=== PATIENT | female | born 1960 | race Caucasian/White ===

== ENCOUNTER → 2016-11-12 | Outpatient (CLI) | payer BC ==
[2016-11-12 08:49] LABS: MEAN CORPUSCULAR HEMOGLOBIN 31.1 pg (27.0-33.0); MEAN CORPUSCULAR HGB CONC 33.1 g/dl (32.0-36.5); MEAN CORPUSCULAR VOLUME 93.9 fl (80.0-96.0); WHITE BLOOD COUNT 5.7 K/mm3 (4.0-10.0)
[2016-11-12 09:19] LABS: ALBUMIN 4.1 GM/DL (3.2-5.2); ALBUMIN/GLOBULIN RATIO 1.41 (1.00-1.93); ALKALINE PHOSPHATASE 109 U/L (45-117); ALT/SGPT 57 U/L (12-78); ANION GAP 6 MEQ/L (8-16); AST/SGOT 24 U/L (15-37); BILIRUBIN,TOTAL 0.4 MG/DL (0.2-1.0); BLOOD UREA NITROGEN 16 MG/DL (7-18); CALCIUM LEVEL 9.2 MG/DL (8.5-10.1); CARBON DIOXIDE LEVEL 31 MEQ/L (21-32); CHLORIDE LEVEL 106 MEQ/L (98-107); CHOLESTEROL LEVEL 243 MG/DL (<200); CREATININE FOR GFR 0.73 MG/DL (0.55-1.02); GLOMERULAR FILTRATION RATE > 60.0 (>51); GLUCOSE, FASTING 103 MG/DL (70-105); POTASSIUM SERUM 4.5 MEQ/L (3.5-5.1); SODIUM LEVEL 143 MEQ/L (136-145); TRIGLYCERIDES LEVEL 137 MG/DL (<150)
== END ==
LOC: M LAB 08:07
PROVIDERS: ATTEND Nurse Practitioner Adult Health
DX: Z00.00 Encounter for general adult medical examination without abnormal findings (principal); R73.09 Other abnormal glucose; J45.20 Mild intermittent asthma, uncomplicated; K76.0 Fatty (change of) liver, not elsewhere classified; I49.9 Cardiac arrhythmia, unspecified; Z83.49 Family history of other endocrine, nutritional and metabolic diseases

== ENCOUNTER → 2017-02-27 | Outpatient (CLI) | payer BC ==
--- NOTE | 2017-02-28 10:16 | REP ---
CT NECK WITHOUT CONTRAST: HISTORY: Left neck fullness. Calcifications are present in the tonsils. This is secondary to previous inflammatory disease. There is minimal enlargement of the left tonsil. There is extension into the left lateral aspect of the soft palate. There is inferior extension into the left lateral wall of the oropharynx. There is minimal mass effect on the upper oropharynx. The hypopharynx, larynx and subglottic trachea are normal in appearance. The salivary glands are normal. The thyroid gland is heterogeneous in density. A 6 mm calcification is present in the left thyroid lobe. Small lymph nodes less than 1 cm in size are present in the internal jugular chains, posterior triangles, submandibular and submental areas. Minimal degenerative change is present in the cervical spine. The lung apices are clear. The visualized sinuses are clear. IMPRESSION: There is enlargement of the left tonsil with extension into the soft palate and the left lateral wall of the oropharynx with minimal mass effect on the upper oropharynx. This is suspicious for a neoplasm. Signed by Chavez Sen MD 02/28/2017 10:19 A
== END ==
LOC: M RAD 17:01
PROVIDERS: ATTEND Nurse Practitioner Adult Health
DX: R22.1 Localized swelling, mass and lump, neck (principal)

== ENCOUNTER → 2017-07-16 | Outpatient (REF) | payer BC ==
[2017-07-16 17:36] LABS: ALBUMIN 4.1 GM/DL (3.2-5.2); ALBUMIN/GLOBULIN RATIO 1.32 (1.00-1.93); ALKALINE PHOSPHATASE 99 U/L (45-117); ALT/SGPT 131 U/L (12-78); ANION GAP 8 MEQ/L (8-16); AST/SGOT 57 U/L (15-37); BILIRUBIN,TOTAL 0.3 MG/DL (0.2-1.0); BLOOD UREA NITROGEN 15 MG/DL (7-18); CALCIUM LEVEL 9.3 MG/DL (8.5-10.1); CARBON DIOXIDE LEVEL 28 MEQ/L (21-32); CHLORIDE LEVEL 104 MEQ/L (98-107); GLOMERULAR FILTRATION RATE > 60.0 (>51); GLUCOSE, FASTING 87 MG/DL (70-105); SODIUM LEVEL 140 MEQ/L (136-145); TOTAL PROTEIN 7.2 GM/DL (6.4-8.2)
== END ==
LOC: M SFHCPLAZ 15:47
PROVIDERS: ATTEND Nurse Practitioner Adult Health
DX: K76.0 Fatty (change of) liver, not elsewhere classified (principal); E04.1 Nontoxic single thyroid nodule; R73.9 Hyperglycemia, unspecified

== ENCOUNTER → 2017-09-09 | Outpatient (CLI) | payer BC ==
[~2017-09-09] MED LIST: DULE200A INH; FLAXPOW PO; METF500T4 PO; OMEP20CA3 PO
[2017-09-09 11:26] LABS: FERRITIN 166 NG/ML (8-252); PERCENT SATURATION 23.3 % (13.2-45.0); TOTAL IRON BINDING CAPACITY 331 UG/DL (250-450)
[2017-09-12 00:07] LABS: ALPHA 1 ANTITRYPSIN 94 mg/dL (90-200); SJOGREN'S ANTI SS-A <0.2 AI (0.0-0.9); SJOGREN'S ANTI SS-B <0.2 AI (0.0-0.9)
== END ==
LOC: M LAB 09:19
PROVIDERS: ATTEND Internal Medicine Gastroenterology
DX: R94.5 Abnormal results of liver function studies (principal)

== ENCOUNTER → 2017-09-25 | Day surgery (SDC) | payer BC ==
[~2017-09-25] VITALS: Ht 170.2 cm; Wt 96.6 kg
[~2017-09-25] MED LIST changes: +LIDOCAINE 2% INJ 100 MG/5 ML SDV (FOR ANES.) As Ordered ONE; +NS 1,000 ML IV ONE; +PROPOFOL 500 MG/50 ML VIAL As Ordered ONE
--- NOTE | 2017-09-25 11:37 | ROOR ---
Patient Name: Meryl Manzano Procedure Date: 09/25/2017 10:44 AM Date of : 1960 Age: 57 Room: [facility] Gender: Female Note Status: Finalized Procedure: Upper GI endoscopy Indications: Suspected esophageal reflux Providers: Abdullahi Sevilla MD Referring MD: Edvin Pickens MD Requesting Provider: Medicines: Monitored Anesthesia Care Complications: No immediate complications. Procedure: Pre-Anesthesia Assessment: - Prior to the procedure, a History and Physical was performed, and patient medications and allergies were reviewed. The patient is competent. The risks and benefits of the procedure and the sedation options and risks were discussed with the patient. All questions were answered and informed consent was obtained. Patient identification and proposed procedure were verified by the physician, the nurse and the anesthesiologist in the procedure room. Mental Status Examination: normal. Airway Examination: normal oropharyngeal airway and neck mobility. Respiratory Examination: clear to auscultation. CV Examination: normal. Prophylactic Antibiotics: The patient does not require prophylactic antibiotics. Prior Anticoagulants: The patient has taken no previous anticoagulant or antiplatelet agents. ASA Grade Assessment: II - A patient with mild systemic disease. After reviewing the risks and benefits, the patient was deemed in satisfactory condition to undergo the procedure. The anesthesia plan was to use monitored anesthesia care (MAC). Immediately prior to administration of medications, the patient was re-assessed for adequacy to receive sedatives. The heart rate, respiratory rate, oxygen saturations, blood pressure, adequacy of pulmonary ventilation, and response to care were monitored throughout the procedure. The physical status of the patient was re-assessed after the procedure. The Endoscope was introduced through the mouth, and advanced to the second part of duodenum. The upper GI endoscopy was accomplished without difficulty. The patient tolerated the procedure well. Findings: The examined esophagus was normal. The Z-line was regular and was found 40 cm from the incisors. Diffuse moderate inflammation characterized by erythema and granularity was found in the gastric body and in the gastric antrum. Biopsies were taken with a cold forceps for Helicobacter pylori testing using CLOtest. Verification of patient identification for the specimen was done by the physician and nurse using the patient's name, date and medical record number. Estimated blood loss was minimal. The duodenal bulb and second portion of the duodenum were normal. Impression: - Normal esophagus. - Z-line regular, 40 cm from the incisors. - Gastritis. Biopsied. - Normal duodenal bulb and second portion of the duodenum. Recommendation: - Patient has a contact number available for emergencies. The signs and symptoms of potential delayed complications were discussed with the patient. Return to normal activities tomorrow. Written discharge instructions were provided to the patient. - Resume previous diet. - Continue present medications. - Follow an antireflux regimen. - Await pathology results. - Return to GI clinic 1 - 2 weeks. Please call GI clinic @ [phone] for apppointment date and time. - Return to primary care physician. Abdullahi Sevilla MD Abdullahi Sevilla MD 09/25/2017 11:36:50 AM This report has been signed electronically. Number of Addenda: 0 Note Initiated On: 09/25/2017 10:44 AM Estimated Blood Loss: Estimated blood loss was minimal.
--- NOTE | 2017-09-25 11:51 | ROOR ---
Patient Name: Meryl Manzano Procedure Date: 09/25/2017 10:45 AM Date of : 1960 Age: 57 Room: [facility] Gender: Female Note Status: Finalized Procedure: Colonoscopy Indications: Screening for colorectal malignant neoplasm Providers: Abdullahi Sevilla MD Referring MD: Edvin Pickens MD Requesting Provider: Medicines: Monitored Anesthesia Care Complications: No immediate complications. Procedure: Pre-Anesthesia Assessment: - Prior to the procedure, a History and Physical was performed, and patient medications and allergies were reviewed. The patient is competent. The risks and benefits of the procedure and the sedation options and risks were discussed with the patient. All questions were answered and informed consent was obtained. Patient identification and proposed procedure were verified by the physician, the nurse and the anesthesiologist in the procedure room. Mental Status Examination: alert and oriented. Airway Examination: normal oropharyngeal airway and neck mobility. Respiratory Examination: clear to auscultation. CV Examination: normal. Prophylactic Antibiotics: The patient does not require prophylactic antibiotics. Prior Anticoagulants: The patient has taken no previous anticoagulant or antiplatelet agents. ASA Grade Assessment: II - A patient with mild systemic disease. After reviewing the risks and benefits, the patient was deemed in satisfactory condition to undergo the procedure. The anesthesia plan was to use monitored anesthesia care (MAC). Immediately prior to administration of medications, the patient was re-assessed for adequacy to receive sedatives. The heart rate, respiratory rate, oxygen saturations, blood pressure, adequacy of pulmonary ventilation, and response to care were monitored throughout the procedure. The physical status of the patient was re-assessed after the procedure. The Colonoscope was introduced through the anus and advanced to the terminal ileum, with identification of the appendiceal orifice and IC valve. The colonoscopy was performed without difficulty. The patient tolerated the procedure well. Findings: The perianal and digital rectal examinations were normal. The terminal ileum appeared normal. A 5 mm polyp was found in the ascending colon. The polyp was sessile. The polyp was removed with a hot snare. Resection and retrieval were complete. Verification of patient identification for the specimen was done by the physician and nurse using the patient's name, date and medical record number. Estimated blood loss was minimal. A 15 mm polyp was found in the transverse colon. The polyp was flat and multi-lobulated. The polyp was removed with a hot snare. Resection and retrieval were complete. To close a defect after polypectomy, one hemostatic clip was successfully placed. There was no bleeding at the end of the procedure. Multiple small-mouthed diverticula were found in the sigmoid colon. There was no evidence of diverticular bleeding. Non-bleeding external and internal hemorrhoids were found during retroflexion. The hemorrhoids were small. Impression: - The examined portion of the ileum was normal. - One 5 mm polyp in the ascending colon, removed with a hot snare. Resected and retrieved. - One 15 mm polyp in the transverse colon, removed with a hot snare. Resected and retrieved. Clip was placed. - Moderate diverticulosis in the sigmoid colon. There was no evidence of diverticular bleeding. - Non-bleeding external and internal hemorrhoids. Recommendation: - Patient has a contact number available for emergencies. The signs and symptoms of potential delayed complications were discussed with the patient. Return to normal activities tomorrow. Written discharge instructions were provided to the patient. - Resume previous diet. - Continue present medications. - Await pathology results. - Repeat colonoscopy in 3 years for surveillance based on pathology results. - Return to GI clinic 1 - 2 weeks. Please call GI clinic @ [phone] for apppointment date and time. - Return to primary care physician. Abdullahi Sevilla MD Abdullahi Sevilla MD 09/25/2017 11:51:34 AM This report has been signed electronically. Number of Addenda: 0 Note Initiated On: 09/25/2017 10:45 AM Estimated Blood Loss: Estimated blood loss was minimal.
[2017-09-25 11:55] VITALS: BP 142/82
== END | disposition home or self-care (01) ==
LOC: M OPP 08:48
PROVIDERS: ATTEND Internal Medicine Gastroenterology
DX: Z12.11 Encounter for screening for malignant neoplasm of colon (principal); D12.2 Benign neoplasm of ascending colon; D12.3 Benign neoplasm of transverse colon; K57.30 Diverticulosis of large intestine without perforation or abscess without bleeding; K64.8 Other hemorrhoids; K64.4 Residual hemorrhoidal skin tags; K21.9 Gastro-esophageal reflux disease without esophagitis; K29.70 Gastritis, unspecified, without bleeding; I49.3 Ventricular premature depolarization; E11.9 Type 2 diabetes mellitus without complications; E04.1 Nontoxic single thyroid nodule; R12 Heartburn; J45.909 Unspecified asthma, uncomplicated; Z87.891 Personal history of nicotine dependence; Z88.8 Allergy status to other drugs, medicaments and biological substances; Z79.899 Other long term (current) drug therapy; Z79.84 Long term (current) use of oral hypoglycemic drugs; Z80.8 Family history of malignant neoplasm of other organs or systems

== ENCOUNTER → 2018-01-26 | Outpatient (CLI) | payer BC ==
[2018-01-26 07:36] LABS: ALBUMIN 4.1 GM/DL (3.2-5.2); ALBUMIN/GLOBULIN RATIO 1.32 (1.00-1.93); ALKALINE PHOSPHATASE 101 U/L (45-117); ALT/SGPT 130 U/L (12-78); ANION GAP 5 MEQ/L (8-16); AST/SGOT 48 U/L (7-37); BILIRUBIN,TOTAL 0.2 MG/DL (0.2-1.0); BLOOD UREA NITROGEN 20 MG/DL (7-18); CALCIUM LEVEL 9.2 MG/DL (8.5-10.1); CARBON DIOXIDE LEVEL 31 MEQ/L (21-32); CHLORIDE LEVEL 106 MEQ/L (98-107); CHOLESTEROL LEVEL 228 MG/DL (<200); CHOLESTEROL RISK RATIO 5.428 (<5); CREATININE FOR GFR 0.79 MG/DL (0.55-1.30); GLOMERULAR FILTRATION RATE > 60.0 (>51); GLUCOSE, FASTING 109 MG/DL (70-100); HDL CHOLESTEROL 42 MG/DL (>40); LDL CHOLESTEROL 152.6 MG/DL (<100); NON-HDL-C 186 MG/DL; POTASSIUM SERUM 4.8 MEQ/L (3.5-5.1); SODIUM LEVEL 142 MEQ/L (136-145); TOTAL PROTEIN 7.2 GM/DL (6.4-8.2); TRIGLYCERIDES LEVEL 167 MG/DL (<150)
[2018-01-26 07:38] LABS: ESTIMATED AVERAGE GLUCOSE 126 MG/DL (60-110)
== END ==
LOC: M LAB 06:30
DX: Z00.00 Encounter for general adult medical examination without abnormal findings (principal); R73.09 Other abnormal glucose
CPT/HCPCS: 80053

== ENCOUNTER → 2019-06-30 | Outpatient (REF) | payer BC ==
[~2019-06-30] MED LIST changes: -LIDOCAINE 2% INJ 100 MG/5 ML SDV (FOR ANES.) As Ordered ONE; +METF-791 PO; -METF500T4 PO; -NS 1,000 ML IV ONE; -OMEP20CA3 PO; +OMEP20CA4 PO; -PROPOFOL 500 MG/50 ML VIAL As Ordered ONE
== END ==
LOC: M SFHCPLAZ 11:54
PROVIDERS: ATTEND Family Medicine
DX: R23.8 Other skin changes (principal)

== ENCOUNTER → 2019-07-07 | Outpatient (REF) | payer BC ==
[~2019-07-07] MED LIST changes: +OMEP1CAP73 PO; -OMEP20CA4 PO
== END ==
LOC: M SFHCPLAZ 09:57
PROVIDERS: ATTEND Dermatology
DX: D49.2 Neoplasm of unspecified behavior of bone, soft tissue, and skin (principal)

== ENCOUNTER → 2019-08-24 | Outpatient (CLI) | payer BC ==
[~2019-08-24] MED LIST changes: -OMEP1CAP73 PO; +OMEP20CA4 PO
[2019-08-24 08:25] LABS: BLOOD UREA NITROGEN 15 MG/DL (7-18); CALCIUM LEVEL 9.9 MG/DL (8.5-10.1); CARBON DIOXIDE LEVEL 30 MEQ/L (21-32); CHLORIDE LEVEL 106 MEQ/L (98-107); CREATININE FOR GFR 0.74 MG/DL (0.55-1.30); GLOMERULAR FILTRATION RATE > 60.0 (>51); GLUCOSE, FASTING 105 MG/DL (70-100); POTASSIUM SERUM 4.3 MEQ/L (3.5-5.1); SODIUM LEVEL 141 MEQ/L (136-145)
--- NOTE | 2019-08-24 08:44 | ECGEPIP ---
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
== END ==
LOC: M LAB 07:08
PROVIDERS: ATTEND Physician Assistant
DX: E11.9 Type 2 diabetes mellitus without complications (principal)

== ENCOUNTER → 2019-09-03 | Outpatient (REF) | payer BC | LOC: M LAB REF 19:01 | PROVIDERS: ATTEND Orthopaedic Surgery Hand Surgery | DX: L90.5 Scar conditions and fibrosis of skin (principal) ==

== ENCOUNTER → 2020-03-27 | Outpatient (CLI) | payer BC ==
[~2020-03-27] MED LIST changes: -METF-791 PO; +METF-838 PO; +OMEP1CAP73 PO; -OMEP20CA4 PO
[2020-03-27 08:52] LABS: ALBUMIN 4.1 GM/DL (3.2-5.2); ALT/SGPT 68 U/L (12-78); BILIRUBIN,TOTAL 0.4 MG/DL (0.2-1.0); BLOOD UREA NITROGEN 16 MG/DL (7-18); CALCIUM LEVEL 9.2 MG/DL (8.5-10.1); CARBON DIOXIDE LEVEL 29 MEQ/L (21-32); CHLORIDE LEVEL 107 MEQ/L (98-107); CHOLESTEROL LEVEL 245 MG/DL (<200); CHOLESTEROL RISK RATIO 5.833 (<5); CREATININE FOR GFR 0.78 MG/DL (0.55-1.30); GLOMERULAR FILTRATION RATE > 60.0 (>51); GLUCOSE, FASTING 98 MG/DL (70-100); HDL CHOLESTEROL 42 MG/DL (>40); LDL CHOLESTEROL 171 MG/DL (<100); NON-HDL-C 203 MG/DL; POTASSIUM SERUM 4.1 MEQ/L (3.5-5.1); SODIUM LEVEL 142 MEQ/L (136-145); TOTAL PROTEIN 7.2 GM/DL (6.4-8.2); TRIGLYCERIDES LEVEL 162 MG/DL (<150)
[2020-03-27 11:13] LABS: HEMOGLOBIN A1c 6.1 %
== END ==
LOC: M LAB 08:06
PROVIDERS: ATTEND Physician Assistant
DX: I10 Essential (primary) hypertension (principal)

== ENCOUNTER → 2020-07-23 | Outpatient (REF) | payer BC | LOC: M SFHCPLAZ 16:54 | PROVIDERS: ATTEND Family Medicine | DX: N30.01 Acute cystitis with hematuria (principal) ==

== ENCOUNTER → 2020-07-23 | Outpatient (REF) | payer BC ==
[2020-07-23 15:23] LABS: BASO # 0.1 10^3/uL (0.0-0.2); BASO % 0.6 % (0.0-1.0); EOS # 0.2 10^3/uL (0.0-0.5); EOS % 2.7 % (0.0-3.0); HEMATOCRIT 45.6 % (36.0-47.0); HEMOGLOBIN 14.6 g/dl (12.0-15.5); LYMPH # 2.8 10^3/uL (1.5-5.0); LYMPH % 34.1 % (24.0-44.0); MEAN CORPUSCULAR HEMOGLOBIN 31.5 pg (27.0-33.0); MEAN CORPUSCULAR VOLUME 98.3 fl (80.0-96.0); MONO # 0.6 10^3/uL (0.0-0.8); MONO % 7.1 % (0.0-5.0); NEUTROPHILS # 4.5 10^3/uL (1.5-8.5); PLATELET COUNT, AUTOMATED 312 10^3/uL (150-450); RED BLOOD COUNT 4.64 10^6/uL (4.00-5.40); WHITE BLOOD COUNT 8.2 10^3/uL (4.0-10.0)
[2020-07-23 15:42] LABS: BLOOD UREA NITROGEN 15 MG/DL (7-18); CALCIUM LEVEL 9.8 MG/DL (8.5-10.1); CARBON DIOXIDE LEVEL 31 MEQ/L (21-32); CHLORIDE LEVEL 104 MEQ/L (98-107); CREATININE FOR GFR 0.78 MG/DL (0.55-1.30); GLOMERULAR FILTRATION RATE > 60.0 (>51); GLUCOSE, FASTING 112 MG/DL (70-100); POTASSIUM SERUM 4.6 MEQ/L (3.5-5.1); SODIUM LEVEL 142 MEQ/L (136-145)
== END ==
LOC: M SFHCPLAZ 14:01
PROVIDERS: ATTEND Family Medicine
DX: N30.01 Acute cystitis with hematuria (principal); M54.6 Pain in thoracic spine

== ENCOUNTER → 2020-10-30 | Outpatient (CLI) | payer BC ==
[~2020-10-30] MED LIST changes: +CIDA500T2 PO; +COLLPOW8 PO; +LIPI10TA PO; +LOSA100T50 PO; +MULTTAB12 PO; +VALA1TAB5 PO; +VENTAER INH
== END ==
LOC: M LABSMTC 09:12
PROVIDERS: ATTEND Anesthesiology
DX: Z01.812 Encounter for preprocedural laboratory examination (principal); Z20.822 Contact with and (suspected) exposure to COVID-19

== ENCOUNTER 2020-11-04 10:39 | Day surgery (SDC) | payer BC ==
[~2020-11-04] VITALS: Ht 170.2 cm; Wt 94.8 kg
[~2020-11-04 10:39] MED LIST changes: +NS 1,000 ML IV ONE
--- OUTSIDE RECORDS SUMMARY | 2020-11-04 10:43 | CCD | Continuity of Care Document ---
Author Author Meryl GRANT Organization Unknown Address [address], [address] [place] [address] Phone [phone] Care Team Providers Care Vamp Strap Ironer Name Role Phone Servage, Maryam Walker R.N. AUTM [phone] AUTM Unavailable Problems Active Problems Provider Date Liver function tests abnormal Abdullahi Sevilla M.D. Onse t: 08/23/2017 Peptic reflux disease Abdullahi Sevilla M.D. Onset: 08/23 Screening for malignant neoplasm of colon Abdullahi murray M.D. Onset: 08/23/2017 Essential hypertension SAL Celaya Onset: Social History Type Date Description Comments Sex Unknown ETOH Use 2 A Week Tobacco Use Start: Unknown Non Smoker Allergies, Adverse Reactions, Alerts Active Allergies Reaction Severity Comments Date Ibuprofen 08/13/2017 Medications Active Medications SIG Qnty Indications Ordering Provide r Date Suprep Bowel Prep Kit 17.5-3.13-1.6GM/177ML Solution take per doctor's bowel prep instructions. 354ml Z12.1 1 Levi Romero MD 09/20/[address] take 4 tabs by mouth prior to procedure per instructions. 4tabs Z12.11 Levi Romero MD 09/20/[address] take one capsule by mouth twice a day 60caps K21.9 Levi Romero MD Metformin HCL ER 500mg Tablets ER 24HR 1 by mouth every evening Unknown 00/00/000 0 Dulera 100-5mcg/Act Aerosol 2 puff twice a day prn Unknown Ventolin HFA 108(90Base) mcg/Act A erosol 2 puffs qid/prn Unknown Lipitor 10mg Tablets Daily Unknown Losartan Potassium 100mg Tablets 1 by mouth every day Unknown Valacyclovir HCL 1gm Tablets Daily Unknown Glucosamine Chondroitin 1500 Complex 1500Com Capsules 2 daily Unknown Multivitamin Tablets 1 by mouth every day Unknown Flax Seeds Powder 1 Tablespo on daily Unknown Collagen Hydrolysate Powder 1 scoop daily Unknown Immunizations Description No Information Available Vital Signs Date Vital Result Comment 09/20/2020 1:35pm BP Systolic 128 mmHg BP Diastolic 78 mmHg Height 67 inches 5'7" Weight 218.00 lb BMI (Body Mass Index) 34.1 kg/m2 [place] Body Weight 135 lb Weight 98.885 kg BSA (Body Surface Area) 2.10 m2 10/04/2017 11:02am BP Systolic 140 mmHg BP Diastolic 88 mmHg Height 67 inches 5'7" Weight 214.00 lb BMI (Body Mass Index) 33.5 kg/m2 [place] Body Weight 135 lb Weight 97.070 kg BSA (Body Surface Area) 2.08 m2 Results Description No Information Available Procedures Description No Information Available Medical Devices Description No Information Available Encounters Description No Information Available Assessments Date Code Description Provider 09/20/2020 Z12.11 Encounter for screening for clement gnant neoplasm of colon Vianey A SAL Grant 09/20/2020 Z86.010 Personal history of colonic poly ps SAL Celaya 09/20/2020 K21.9 Gastro-esophageal reflux disease without esophagitis SAL Celaya Plan of Treatment 09/20/2020 - VianeySAL Neri* Z12.11 Encounter for screening for malignant neoplasm of colon * Z86.010 Personal history of colonic polyps * K21.9 Gastro-esophageal reflux disease without esophagitis * * New Medication:* Suprep Bowel Prep Kit 17.5-3.13-1.6 GM/177ML * Dulcolax 5 mg * New Orders:* Colonoscopy, Ordered: 09/20/20 * Comments:* Will arrange for upper endoscopy and colonoscopy. Reviewed risks and benefits of the procedures, as well as other options, with the patient. Prep for this procedure was discussed with patient, including risks and side effects associated with the prep. Patient verbalized understanding of all of the above and is in agreement to proceed. Patient will seek medical attention for any acute changes. Will monitor. * Follow up:* As scheduled, sooner if needed. Functional Status Description No Information Available Mental Status Description No Information Available Referrals Description No Information Available
--- OUTSIDE RECORDS SUMMARY | 2020-11-04 10:43 | CCD ---
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 I have asked her to schedule a follow-up appointment with Maryam Servage, ANP Problem Melanocytic nevi of right lower limb, including hip D22.71 Active 851025219 Problem Melanocytic nevi of left upper limb, including shoulder D22.62 Active 653637280 Problem Melanocytic nevi of right upper limb, including shoulder D22.61 Active 985228837 Problem Melanocytic nevi of trunk D22.5 Active 043866 002 ALLERGIES Allergen (clinical drug ingredient) Drug/Non Drug Allergy do cumented on EMR Reaction Allergy Type Onset Date Status ibuprofen Ibuprofen([facility] Code:[address]-90) Facial & mouth swelling increased bp Drug Allergy Active ENCOUNTERS from 1960 to 2020-11-03 Encounter Location Date Provider Diagnosis [address] [address] Oct, Maryam Servage IMMUNIZATIONS Vaccine Route Administration Date Status Influenza (Pharmacy Given) Unknown Jul 12, 2020 Admin istered Influenza (Pharmacy Given) Unknown Jul 17, 2018 Admin istered Zoster 50mcg/0.5mL (Shingrix) Unknown February 09, 2018 Ad ministered Influenza (6mo & up) Fluzone Unknown Jul 16, 2017 Oth ers SOCIAL HISTORY Sex Assigned At : Social History Observation Description Sex Assigned At Unknown Audit Question Answer Notes Total Score: 1 Interpretation: Alcohol Education Adventist: Question Answer Notes Adventist 13 Gnosticism Sexual Hx: Question Answer Notes Had sex in the last 12 months (vaginal, oral, or anal)? Yes Have you ever had an STD? No Prevention Strategies discussed: Other with Men only Use protection? No Drug and Alcohol Question Answer Notes Total Score: 0 Interpretation: No problems reported Alcohol Screening: Question Answer Notes Did you have a drink containing alcohol in the past year? Ye s Points 1 Interpretation Negative How often did you have six or more drinks on one occas ion in the past year? Never (0 points) How many drinks did you have on a typica l day when you were drinking in the past year? 1 or 2 (0 points) How often did you have a drink containing alcohol in t he past year? Monthly or less (1 point) REASON FOR REFERRAL No Information VITAL SIGNS No information MEDICATIONS Medication SIG (Take, Route, Frequency, Duration) Notes Start Da te End Date Status Flax Seed Oil 1000 MG 1 tab Orally Daily Active MetFORMIN HCl ER 500 mg 1 tablet with evening meal Orally Once a day Active Valtrex 1 GM 1 tablet Orally Once a day for 90 day(s) 14 O 2018 Active Collagen 500 MG Powder-scoop Orally Daily Active Atorvastatin Calcium 10 MG 1 tablet Orally Once a day for 90 day s Aug, Active Ventolin HFA 90 MCG/ACT 2 puffs as needed Inhalation every 4-6 hrs prn wheeezing, shortness of breath for 1 month Active Multi For Her 50+ - 1 tab Orally Daily Active Physical Therapy evaluate and treat m25.562 3 x/wk x for 30 Days Mar, Not-Taking Losartan Potassium 100 MG 1 tablet Orally Once a day for 30 Active Joint Support Complex - 1 cap Orally twice daily Active Omeprazole 40 MG 1 tablet Orally Once a day for 90 days Active PROCEDURES No Information RESULTS No Results REASON FOR VISIT MetFORMIN HCl ER 500 MG MEDICAL (GENERAL) HISTORY Type Description Date Medical History hypertension Medical History hypercholesterol Medical History asthma PFT's 10/24/13 Medical History fatty liver -per liver ultrasound01/27/15 Medical History elevated LFT-hep panel negative 01/20 Medical History hepatitis panel negative Medical History pre- diabestes hga1c 6.4=137 4 07/22 Medical History hx tobacco abuse quit 2000 20 pack year hsitory Medical History history of ventricular bigem iny on EKG 09/25/07-Holter monitor indicated sinus rhythm with frequent ventricular ectopy including couplets and bigeminy Medical History thyroid nodule followed thru [facility] Surgical History total hysterectomy with bladder sling 20 05 Surgical History gallbladder 1987 Surgical History tubal Surgical History deviated nasal septum Surgical History Dx lap Surgical History colonoscopy- 2 polyps removed, 1 pre can cer 3 year follow up 09/25/17 Surgical History EDG 09/25/17 Hospitalization History hospitalization per above Goals Section No Information Health Concerns No Information MEDICAL EQUIPMENT No Information MENTAL STATUS No Information FUNCTIONAL STATUS No Information ASSESSMENTS No Information PLAN OF TREATMENT Medication Medication Name Sig Start Date Stop Date Atorvastatin Calcium 10 MG 1 tablet Orally Once a day for 90 day s Aug, Losartan Potassium 100 MG 1 tablet Orally Once a day for 30 MetFORMIN HCl ER 500 mg 1 tablet with evening meal Orally Once a day Next Appt Details Provider Name:Maryam Walker Prudencio, 02:00:00 PM, [address] [place], [address], Insurance Providers Payer Name Payer Address Payer Phone Insured Name Patient Relati onship to Insured Coverage Start Date Coverage End Date [place] [id number] [address] [place] [id number] GERARDO MOISE
--- OUTSIDE RECORDS SUMMARY | 2020-11-04 10:44 | CCD ---
Author Author Levi Farnk MD [facility] Organization Levi Frank MD [facility] Address [phone] [address] Phone Care Team Providers Care Search Engine Marketing Manager Name Role Phone Brandan GODDARD Fernie Unavailable [phone] Reason for Referral No Reason for Referral Recorded Problems Includes: Active, inactive, and resolved Problems All Visits Onset Date - Time Resolved Date - Time Provider Co ndition Status Taking Medication For Diabetes Long-term Use of Oral H ypoglycemics 09/08/2020 - 12:00AM Fernie Gipson DO Active Diabetes Mellitus Type 2 Without Complication 09/08/2020 - 12:00 AM Fernie Gipson DO Active Cataract Senile Nuclear 09/08/2020 - 12:00AM Fernie jones DO Active Dry Eye Syndrome 09/08/2020 - 12:00AM Fernie saini DO Active Vitreous Disorders Degeneration 09/08/2020 - 12:00AM Dale Gipson DO Active Plan of Treatment Future Appointments Date Time Location Provider 1 Year Follow-Up 2021 2:10PM Levi Frank MD [facility] Fernie Gipson DO Assessments Includes: Assessments for all patient encounters Findings Encounter Date Dry eye syndrome NEW PATIENT WITH REFERRAL with Fernie jones DO 09/08/2020 Long-term use of oral hypoglycemics NEW PATIENT WITH R EFERRAL with Fernie Gipson DO 09/08/2020 Nuclear senile cataract NEW PATIENT WITH REFERRAL with Nancy Gipson DO 09/08/2020 Type 2 diabetes mellitus without complication [facility] WITH REFERRAL with Fernie Gipson DO 09/08/2020 Vitreous degeneration NEW PATIENT WITH REFERRAL with Fernie Gipson DO 09/08/2020 Instructions Instructions not supported for this document typeNo Instructions Recorded Medical Equipment - Implanted Devices Includes: Current and historical DevicesNo Medical Equipment Recorded Medications Includes: Current and historical Medications Current Medications (continue as prescribed) Lipitor 10 MG Oral Tablet 09/08/2020 Provider: Diagnosis: Omeprazole 40 MG Oral Capsule Delayed Release 09/08/2020 Provider: Diagnosis: metFORMIN HCl 500 MG Oral Tablet 09/08/2020 Provide r: Diagnosis: Losartan Potassium 100 MG Oral Tablet 09/08/2020 Pr ovider: Diagnosis: valACYclovir HCl 1 GM Oral Tablet 09/08/2020 Provid er: Diagnosis: Glucosamine-Chondroitin 1500 / 1200 MG Oral Tablet 0 Provider: Diagnosis: Multivitamin Oral Tablet 09/08/2020 Provider: Diagnosis: Medications Administered Includes: Administered Medications in patient's chartNo Administered Medications Recorded Vital Signs Includes: Vital Signs from 09/08/2019 through 09/08/2020No Vital Signs Recorded For Specified Dates Results Includes: Results from 09/08/2019 through 09/08/2020No Results Recorded For Specified Dates History of Present Illness History of Present Illness not supported for this document typeNo History of Present Illness Recorded Social History Description Last Updated A social drinker 09/08/2020 No tobacco use 09/08/2020 Not using drugs 09/08/2020 Previous smoking history 09/08/2020 Smoking status : Former smoker 09/08/2020 Procedures and Surgical History Includes: Procedures from 09/08/2019 through 09/08/2020 Procedures Code Diagnosis Performing Provider Service Location Service Date Medical Eye Exam 90121 Type 2 diabetes hannah itus without complications, 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, CATARACT SENILE NUCLEAR, DRY EYE SYNDROME Fernie Gipson DO 09/08/2020 Surgical History Last Updated Surgical / procedural history Cholecyst ectomy 1987, Hysterectomy 2001, Bladder Sling 2001, DNS 1982 09/08/2020 Medical History Includes: Medical History in patient's chart Description Last Updated History of the retina was normal 201809/08/2020 Currently wearing eyeglasses 09/08/2020 History of diabetes mellitus DX: 2017 A1c: 6.1 w/ Maryam Flannery FBS: Does not have to check 09/08/2020 History of hyperlipidemia 09/08/2020 History of hypertension 09/08/2020 Family History Includes: Family History in patient's chart Description Last Updated Maternal history of cataract 09/08/2020 Maternal history of diabetes mellitus 09/08/2020 Maternal history of family history of cancer 0 Maternal history of glaucoma 09/08/2020 Maternal history of heart disease 09/08/2020 Maternal history of hypertension 09/08/2020 Maternal history of macular degeneration 09/08/2020 Maternal history of strabismus 09/08/2020 Maternal history of stroke/cerebrovascular accident Maternal history of thyroid disorder 09/08/2020 Paternal history of arthritis 09/08/2020 Sororal history of family history of cancer 09/08/2020 Sororal history of thyroid disorder 09/08/2020 Review of Systems Review of Systems not supported for this document typeNo Review of Systems Recorded Mental Status Mental Status not supported for this document type Description Oriented to time, place, and person Difficulty reading fine print Functional Status Functional Status not supported for this document typeNo Functional Status Recorded Physical Exam Physical Exam not supported for this document typeNo Physical Exam Recorded Immunizations Includes: Immunizations in patient's chartNo Immunizations Recorded Allergies Includes: Active, inactive, and resolved Allergies Substance Type Reaction Onset Date - Time Resolved Date - Ti me Status Ibuprofen Allergy 09/08/2020 - 2:11PM Activ e Encounters Includes: Encounters from 09/08/2019 through 09/08/2020 Encounter Provider Location Date Check-In Time Check-Out Time D iagnosis NEW PATIENT WITH REFERRAL Fernie Hazel MD [facility] 09/08/2020 12:49PM 3:29PM Dry Eye Syndrome, Ca taract Senile Nuclear, Vitreous Disorders Degeneration, Taking Medication For Diabetes Long-term Use of Oral Hypoglycemics, Diabetes Mellitus Type 2 Without Complication Insurance Includes: Active Insurance Policies Plan Name Member ID Group # Subscriber Relationship Effective Da maureen 1 - [employer]/BS [id number] Meryl Manzano Self Advance Directives Includes: Current Advance DirectivesNo Advance Directives Recorded Health Concerns Includes: Active Health ConcernsNo Active Health Concerns Recorded Goals Includes: Active GoalsNo Active Goals Recorded Interventions Includes: Interventions for active GoalsNo Interventions Recorded Evaluations & Outcomes Includes: Evaluations & Outcomes for active GoalsNo Outcomes Recorded
--- OUTSIDE RECORDS SUMMARY | 2020-11-04 10:44 | CCD ---
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 I have asked her to schedule a follow-up appointment with Maryam Servage, ANP Problem Melanocytic nevi of right lower limb, including hip D22.71 Active 958635904 Problem Melanocytic nevi of left upper limb, including shoulder D22.62 Active 388332580 Problem Melanocytic nevi of right upper limb, including shoulder D22.61 Active 906723009 Problem Melanocytic nevi of trunk D22.5 Active 194962 002 ALLERGIES Allergen (clinical drug ingredient) Drug/Non Drug Allergy do cumented on EMR Reaction Allergy Type Onset Date Status ibuprofen Ibuprofen([facility][NOTE 3] Code:[address]-55) Facial & mouth swelling increased bp Drug Allergy Active ENCOUNTERS from 1962 to 2020-08-30 Encounter Location Date Provider Diagnosis [address] [address] Aug, Maryam Flannery Well adult exam Z00.00 ; Essential hyper tension I10 ; Fatty liver K76.0 ; Gastroesophageal reflux disease without esophagitis K21.9 ; Thyroid nodule E04.1 ; Prediabetes R73.09 ; Adenomatous polyp D36.9 ; History of tobacco abuse Z87.891 ; Bigeminy I49.9 ; Mild intermittent asthma without complication J45.20 ; Mixed hyperlipidemia E78.2 and Immunization not carried out because of patient refusal Z28.21 IMMUNIZATIONS Vaccine Route Administration Date Status Influenza [...] Notes Total Score: 1 Interpretation: Alcohol Education Anabaptist: Question Answer Notes Anabaptist [employer] Sexual Hx: Question Answer Notes Had sex [...] REASON FOR REFERRAL No Information VITAL SIGNS Weight 218 lbs Aug, Height 5'7" in Aug, BMI 34.14 kg/m2 Aug, Heart Rate 88 /min Aug, Respiratory Rate 18 /min Aug, Temperature 98.8 degrees Fahrenheit Aug, Oximetry 97% Aug, Blood pressure systolic 150 mm Hg Aug, Blood pressure diastolic 80 mm Hg Aug, MEDICATIONS Medication SIG (Take, Route, Frequency, Duration) [...] tablet Orally Once a day for 30 day( s) Aug, Active Joint Support Complex - 1 cap Orally twice daily Active Omeprazole 40 MG 1 tablet Orally Once a day for 90 days Active PROCEDURES No Information RESULTS No Results REASON FOR VISIT 1 month (Reason: F/u HTN), Seen Dr. Taveras 160/90 MEDICAL (GENERAL) HISTORY Type Description Date Medical [...] No Information FUNCTIONAL STATUS No Information ASSESSMENTS Encounter Date Diagnosis Assessment Notes Treatment Notes Treatm ent Clinical Notes Aug, Well adult exam (ICD-10 - Z00.00) age appropriate anticipatory guidance given, per USPSTF recommendations; immunizations up to date. discussed plans for implementing improvement in identified areas Aug, Essential hypertension (ICD-10 - I10) Per JNC 8 guidelines, goal BP > 140/90 (150/90 if age >60), will increase cozaar 100 mg po q day. Aug, Fatty liver (ICD-10 - K76.0) Verified with liver ultrasound 01/25/15 elevated liver enzymes in the past, they have normalized. Patient remains on metformin Aug, Gastroesophageal reflux dise ase without esophagitis (ICD-10 - K21.9) Noted by ENT at [place], patient on omeprazole 40 mg daily with effect Aug, Thyroid nodule (ICD-10 - E04.1) Abnormal CT of the neck earlier this year. Patient was referred to [facility]. Was worked up by their service. Has a follow-up appointment in August. She has signed a release so that we can obtain records Aug, Prediabetes (ICD-10 - R73.09) tolerating metformin with no side effects Aug, Adenomatous polyp (ICD-10 - D36.9) Per colonoscopy 09/25/2017, transverse colon, adenoma, fragments ascending colon sessile serrated adenoma, rectal sigmoid colon hyperplastic 3 year follow up 09/2020 already has it scheduled for juwan this month Aug, History of tobacco abuse (ICD-10 - Z87.891) Quit smoking in 2000, has a 31-pdua-bpyg history Aug, Bigeminy (ICD-10 - I49.9) per ekg symptomatic Aug, Mild intermittent asthma without complication (I CD-10 - J45.20) not using her inhaler at the current time. Aug, Mixed hyperlipidemia (ICD-10 - E78.2) Blood will be drawn today ASCVD risk is 12.3 will start atorvastatin 10 mg po q day. Aug, Immunization not carried out because of patient refusal (ICD-10 - Z28.21) flu vaccine already given August 02 2020. PLAN OF TREATMENT Medication Medication Name Sig Start Date Stop Date Atorvastatin Calcium 10 MG 1 tablet Orally Once a day for 90 day s Aug, Losartan Potassium 100 MG 1 tablet Orally Once a day for 30 day( s) Aug, MetFORMIN HCl ER 500 mg 1 tablet with evening meal Orally Once a day Treatment Notes Assessment Notes Clinical Notes Well adult exam age appropriate anti cipatory guidance given, per USPSTF recommendations; immunizations up to date. discussed plans for implementing improvement in identified areas Essential hypertension Per JNC 8 guideli caprice, goal BP > 140/90 (150/90 if age >60), will increase cozaar 100 mg po q day. Fatty liver Verified with liver ultrasound 01/25/15 elevated liver enzymes in the past, they have normalized. Patient remains on metformin Gastroesophageal reflux disease without esophagitis Noted by ENT at [place], patient on omeprazole 40 mg daily with effect Thyroid nodule Abnormal CT of the n y[place] earlier this year. Patient was referred to [facility]. Was worked up by their service. Has a follow-up appointment in August. She has signed a release so that we can obtain records Prediabetes tolerating metformin with no side effects Adenomatous polyp Per colonoscopy 09/07, transverse colon, adenoma, fragments ascending colon sessile serrated adenoma, rectal sigmoid colon hyperplastic 3 year follow up 09/2020already has it scheduled for juwan this month History of tobacco abuse Quit smoking in 2000, has a 44-aivv-lcip history Bigeminy per ekg symptomatic Mild intermittent asthma without complication not using her inhaler at the current time. Immunization not carried out because of patient refusal flu vaccine already given August 02 2020. Mixed hyperlipidemia ASCVD risk is 12.3 will start atorvastatin 10 mg po q day. Next Appt Details Maryam 3 month follow up medical issues Reason: Provider Name:Maryam Flannery, 02:00:00 PM, [facility] [place], [address], Insurance Providers Payer Name Payer Address Payer Phone Insured Name Patient Relati onship to Insured Coverage Start Date Coverage End Date [place] [id number] [address] [place] [address] [place]
--- OUTSIDE RECORDS SUMMARY | 2020-11-04 10:44 | CCD ---
Author Author [facility] Organization [facility] Address Unknown Phone Unavailable Care Team Providers Care Wireless Technician Name Role Phone Fernando, Rhiannon PA Unavailable Unavailable Fernando, Rhiannon PA Unavailable Unavailable Fernando, Rhiannon PA Unavailable Unavailable Fernando, Rhiannon PA Unavailable Unavailable Fernando, Rhiannon PA Unavailable Unavailable Fernando, Rhiannon PA Unavailable Unavailable Fernando, Rhiannon PA Unavailable Unavailable Fernando, Rhiannon PA Unavailable Unavailable Fernando, Rhiannon PA Unavailable Unavailable Fernando, Rhiannon PA Unavailable Unavailable Fernando, Rhiannon PA Unavailable Unavailable Fernando, Rhiannon PA Unavailable Unavailable Fernando, Rhiannon PA Unavailable Unavailable Fernando, Rhiannon PA Unavailable Unavailable Fernando, Rhiannon PA Unavailable Unavailable Fernando, Rhiannon PA Unavailable Unavailable Fernando, Rhiannon PA Unavailable Unavailable Fernando, Rhiannon PA Unavailable Unavailable Fernando, Rhiannon PA Unavailable Unavailable Fernando, Rhiannon PA Unavailable Unavailable Fernando, Rhiannon PA Unavailable Unavailable Fernando, Rhiannon PA Unavailable Unavailable Fernando, Rhiannon PA Unavailable Unavailable Fernando, Rhiannon PA Unavailable Unavailable Fernando, Rhiannon PA Unavailable Unavailable Fernando, Rhiannon PA Unavailable Unavailable Fernando, Rhiannon PA Unavailable Unavailable Fernando, Rhiannon PA Unavailable Unavailable Fernando, Rhiannon PA Unavailable Unavailable Fernando, Rhiannon PA Unavailable Unavailable Fernando, Rhiannon PA Unavailable Unavailable Fernando, Rhiannon PA Unavailable Unavailable Fernando, Rhiannon PA Unavailable Unavailable Fernando, Rhiannon PA Unavailable Unavailable Fernando, Rhiannon PA Unavailable Unavailable Fernando, Rhiannon PA Unavailable Unavailable Fernando, Rhiannon PA Unavailable Unavailable Fernando, Rhiannon PA Unavailable Unavailable Fernando, Rhiannon PA Unavailable Unavailable Fernando, Rhiannon PA Unavailable Unavailable Fernando, Rhiannon PA Unavailable Unavailable Fernando, Rhiannon PA Unavailable Unavailable Fernando, Rhiannon PA Unavailable Unavailable Fernando, Rhiannon PA Unavailable Unavailable Fernando, Rhiannon PA Unavailable Unavailable Fernando, Rhiannon PA Unavailable Unavailable Fernando, Rhiannon PA Unavailable Unavailable Fernando, Rhiannon PA Unavailable Unavailable Fernando, Rhiannon PA Unavailable Unavailable Fernando, Rhiannon PA Unavailable Unavailable Fernando, Rhiannon PA Unavailable Unavailable Fernando, Rhiannon PA Unavailable Unavailable Fernando, Rhiannon PA Unavailable Unavailable Fernando, Rhiannon PA Unavailable Unavailable Fernando, Rhiannon PA Unavailable Unavailable Fernando, Rhiannon PA Unavailable Unavailable Fernando, Rhiannon PA Unavailable Unavailable Fernando, Rhiannon PA Unavailable Unavailable Fernando, Rhiannon PA Unavailable Unavailable Fernando, Rhiannon PA Unavailable Unavailable Fernando, Rhiannon PA Unavailable Unavailable Fernando, Rhiannon PA Unavailable Unavailable Fernando, Rhiannon PA Unavailable Unavailable Fernando, Rhiannon PA Unavailable Unavailable Fernando, Rhiannon PA Unavailable Unavailable Fernando, Rhiannon PA Unavailable Unavailable Fernando, Rhiannon PA Unavailable Unavailable Fernando, Rhiannon PA Unavailable Unavailable Fernando, Rhiannon PA Unavailable Unavailable Fernando, Rhiannon PA Unavailable Unavailable Fernando, Rhiannon PA Unavailable Unavailable Fernando, Rhiannon PA Unavailable Unavailable Fernando, Rhiannon PA Unavailable Unavailable Fernando, Rhiannon PA Unavailable Unavailable Fernando, Rhiannon PA Unavailable Unavailable Fernando, Rhiannon PA Unavailable Unavailable Fernando, Rhiannon PA Unavailable Unavailable Fernando, Rhiannon PA Unavailable Unavailable Fernando, Rhiannon PA Unavailable Unavailable Fernando, Rhiannon PA Unavailable Unavailable Fernando, Rhiannon PA Unavailable Unavailable Fernando, Rhiannon PA Unavailable Unavailable Fernando, Rhiannon PA Unavailable Unavailable Fernando, Rhiannon PA Unavailable Unavailable Fernando, Rhiannon PA Unavailable Unavailable Fernando, Rhiannon PA Unavailable Unavailable Fernando, Rhiannon PA Unavailable Unavailable Fernando, Rhiannon PA Unavailable Unavailable Fernando, Rhiannon PA Unavailable Unavailable Fernando, Rhiannon PA Unavailable Unavailable Fernando, Rhiannon PA Unavailable Unavailable Fernando, Rhiannon PA Unavailable Unavailable Fernando, Rhiannon PA Unavailable Unavailable Fernando, Rhiannon PA Unavailable Unavailable Fernando, Rhiannon PA Unavailable Unavailable Fernando, Rhiannon PA Unavailable Unavailable Fernando, Rhiannon PA Unavailable Unavailable Fernando, Rhiannon PA Unavailable Unavailable Fernando, Rhiannon PA Unavailable Unavailable Fernando, Rhiannon PA Unavailable Unavailable Fernando, Rhiannon PA Unavailable Unavailable Fernando, Rhiannon PA Unavailable Unavailable Fernando, Rhiannon PA Unavailable Unavailable Fernando, Rhiannon PA Unavailable Unavailable Fernando, Rhiannon PA Unavailable Unavailable Fernando, Rhiannon PA Unavailable Unavailable Fernando, Rhiannon PA Unavailable Unavailable Fernando, Rhiannon PA Unavailable Unavailable Fernando, Rhiannon PA Unavailable Unavailable Fernando, Rhiannon PA Unavailable Unavailable Fernando, Rhiannon PA Unavailable Unavailable Fernando, Rhiannon PA Unavailable Unavailable Fernando, Rhiannon PA Unavailable Unavailable Fernando, Rhiannon PA Unavailable Unavailable Fernando, Rhiannon PA Unavailable Unavailable Fernando, Rhiannon PA Unavailable Unavailable Cynthia GIPSON DO Unavailable [phone] Cynthia GIPSONEW DO Unavailable [phone] Cynthia GIPSONEW DO Unavailable [phone] Cynthia GIPSONEW DO Unavailable [phone] Cynthia GIPSONEW DO Unavailable [phone] Cynthia GIPSONEW DO Unavailable [phone] Cynthia GIPSONEW DO Unavailable [phone] Cynthia GIPSONEW DO Unavailable [phone] Cynthia GIPSON FILI DO Unavailable [phone] Cynthia GIPSON FILI DO Unavailable [phone] Cynthia GIPSON FILI DO Unavailable [phone] Cynthia GIPSONEW DO Unavailable [phone] Cynthia GIPSONEW DO Unavailable [phone] Cynthia GIPSON FILI DO Unavailable [phone] Cynthia GIPSON FILI DO Unavailable [phone] Cynthia GIPSON FILI DO Unavailable [phone] Cynthia GIPSON DO Unavailable [phone] Cynthia GIPSON DO Unavailable [phone] Cynthia GIPSON DO Unavailable [phone] Cynthia GIPSON DO Unavailable [phone] Cynthia GIPSON DO Unavailable [phone] Re-disclosure Warning The records that you are about to access may contain information from federally-assisted alcohol or drug abuse programs. If such information is present, then the following federally mandated warning applies: This information has been disclosed to you from records protected by federal confidentiality rules (42 CFR part 2). The federal rules prohibit you from making any further disclosure of this information unless further disclosure is expressly permitted by the written consent of the person to whom it pertains or as otherwise permitted by 42 CFR part 2. A general authorization for the release of medical or other information is NOT sufficient for this purpose. The Federal rules restrict any use of the information to criminally investigate or prosecute any alcohol or drug abuse patient.The records that you are about to access may contain highly sensitive health information, the redisclosure of which is protected by Article 27-F of the [facility] Public Health law. If you continue you may have access to information: Regarding HIV / AIDS; Provided by facilities licensed or operated by the [facility] Office of Mental Health; or Provided by the [facility] Office for People With Developmental Disabilities. If such information is present, then the following [facility] mandated warning applies: This information has been disclosed to you from confidential records which are protected by state law. State law prohibits you from making any further disclosure of this information without the specific written consent of the person to whom it pertains, or as otherwise permitted by law. Any unauthorized further disclosure in violation of state law may result in a fine or care home sentence or both. A general authorization for the release of medical or other information is NOT sufficient authorization for further disc losure. Allergies and Adverse Reactions Type Description Substance Reaction Status Data Source(s ) Drug allergy Ibuprofen Oral Tablet Ibuprofen Active G REENWAY (Levi Bain MD [facility]) Family History Family Member Name Family Member Gender Family Member Status Date o f Status Description Data Source(s) Unknown Unknown Problem [facility] ([facility], ) Mother Unknown Female Problem MEDENT ([facility], [facility]) Encounters Encounter Providers Location Date Indications Data Source(s ) Unknown [address] [facility] [address] 11/02/2020 12:00:00 AM EST eCW1 (Pending sale to [facility]) Outpatient<td ID="encounterTypeDescripti onID0">NEW PATIENT WITH REFERRAL</td><td>Fili Gipson DO</td><td>Levi Frank MD [facility]</td><td>09/08/2020</td><td>12:49PM</td><td>3:29PM</td><td><content ID="encounterDiagnosisID0-0">Dry Eye Syndrome</content>, <content ID="encounterDiagnosisID0-1">Cataract Senile Nuclear</content>, <content ID="encounterDiagnosisID0-2">Vitreous Disorders Degeneration</content>, <content ID="encounterDiagnosisID0-3">Taking Medication For Diabetes Long-term Use of Oral Hypoglycemics</content>, <content ID="encounterDiagnosisID0-4">Diabetes Mellitus Type 2 Without Complication</content></td> Attender: FILI Hazel MD [facility] 09/08/2020 12:49:00 PM EST - 09/08/2020 03:29:00 PM EST Diabetes Mellitus Type 2 Without Complic ationTaking Medication For Diabetes Long-term Use of Oral HypoglycemicsVitreous Disorders DegenerationCataract Senile NuclearDry Eye Syndrome LACEY (Levi Bain MD [facility]) Diabetes Mellitus Type 2 Without Complic ation Taking Medication For Diabetes Long-term Use of Oral Hypoglycemics Vitreous Disorders Degeneration Cataract Senile Nuclear Dry Eye Syndrome Outpatient [address] [facility] [address] 08/24/2020 12:00:00 AM EST eCW1 (Pending sale to [facility]) Unknown [address] [facility] [address] 07/26/2020 12:00:00 AM EDT eCW1 (Pending sale to [facility]) Unknown [address] [facility] [address] 07/24/2020 12:00:00 AM EDT eCW1 (Pending sale to [facility]) Outpatient [address] [facility] [address] 07/23/2020 12:00:00 AM EDT eCW1 (Pending sale to [facility]) Unknown [address] [facility] [address] 07/23/2020 12:00:00 AM EDT eCW1 (Pending sale to [facility]) [facility] Dermatology [address] [place] [address] 07/07/2020 12:00:00 AM EDT eCW1 (Pending sale to [facility]) Outpatient Referrer: Rhiannon VANN 06/22/2020 1 2:00:00 AM EDT Inconclusive mammogram [facility] Inconclusive mammogram Outpatient Referrer: Rhiannon VANN 06/22/2020 1 2:00:00 AM EDT Encounter for screening mammogram for malignant neoplasm of breast [facility] Encounter for screening mammogram for ma lignant neoplasm of breast Outpatient Referrer: Rhiannon VANN 03/25/2020 02:45:0 0 PM EDT [facility] Outpatient Referrer: Rhiannon VANN 03/25/2020 02:40:0 0 PM EDT [facility] Outpatient [address] [facility] [address] 03/25/2020 12:00:00 AM EDT eCW1 (Pending sale to [facility]) [facility] [address] [facility] [address] 01/12/2020 12:00:00 AM EDT eCW1 (Pending sale to [facility]) Immunizations Vaccine Date Status Description Data Source(s) IIV3. This is one of two codes replacing CVX 15, which is being retired. 07/12/2020 04:56:00 PM EDT completed eCW1 ([facility]) IIV3. This is one of two codes replacing CVX 15, which is being retired. 07/12/2020 04:56:00 PM EDT completed eCW1 ([facility]) Medications Medication Brand Name Start Date Product Form Dose Route Admi nistrative Instructions Pharmacy Instructions Status Indications Reaction Description Data Source(s) 100 mg 10/21/2020 12:00:00 AM EST tablet 30 TAKE ONE TABLET BY MOUTH EVERY DAY TAKE ONE TABLET BY MOUTH EVERY DAY SOLD: 10/23/2020 [facility] 17.5-3.13-1.6 gram 10/21/2020 12:00:00 AM EST recon soln 354 TAKE DIRECTED PER 'S BOWEL PREP INSTRUCTIONS TAKE DIRECTED PER 'S BOWEL PREP INSTRUCTIONS SOLD: 10/23/2020 [facility] 20 mg 09/21/2020 12:00:00 AM EST capsule,delayed release (/EC) 60 TAKE ONE CAPSULE BY MOUTH TWICE A DAY TAKE ONE CAPSULE BY MOUTH TWICE A DAY SOLD: 09/29/2020 [facility] Omeprazole 20 MG Delayed Release Oral Capsule Omeprazole 09/20/2020 12:00:00 AM EST ORAL active MEDENT ([facility], ) Bisacodyl 5 MG Delayed Release Oral Tablet [Dulcolax] Dulcol ax 09/20/2020 12:00:00 AM EST ORAL active M EDENT ([facility]) Suprep Bowel Prep Kit Suprep Bowel Prep Kit 09/20/2020 12:00:00 AM EST active MEDENT ([facility]) Metformin hydrochloride 500 MG Oral Tablet metFORMIN H Cl 500 MG Oral Tablet metFORMIN HCl 500 MG Oral Tablet 09/08/2020 12:00:00 AM EST 1 active metformin hydrochloride 500 MG Oral Tablet ZANE (Nathalie Bain MD [facility]) Losartan Potassium 100 MG Oral Tablet Losartan Potassium 100 MG Oral Tablet 09/08/2020 12:00:00 AM EST 1 active losartan potassium 100 MG Oral Tablet ZANE (Levi Bain MD [facility]) atorvastatin 10 MG Oral Tablet [Lipitor] Lipitor 10 MG Oral Tablet Lipitor 10 MG Oral Tablet 09/08/2020 12:00:00 AM EST 1 activ e atorvastatin 10 MG Oral Tablet [Lipitor] ZANE (Levi Bain MD [facility]) Omeprazole 40 MG Delayed Release Oral Ca psule Omeprazole 40 MG Oral Capsule Delayed Release Omeprazole 40 MG Oral Capsule Delayed Release 09/08/20 12:00:00 AM EST 1 active omeprazole 40 MG Delayed Release Oral Capsule ZANE (Levi Bain MD [facility]) valacyclovir 1000 MG Oral Tablet valACYclovir HCl 1 GM Oral Tablet valACYclovir HCl 1 GM Oral Tablet 09/08/2020 12:00:00 AM EST 1 active valacyclovir 1000 MG Oral Tablet ZANE (Levi Bain MD [facility]) Multivitamin Oral Tablet Multivitamin Oral Tablet 09/08/2020 12:00: 00 AM EST 1 active Multivitamin ZANE (Nathalie Bain MD [facility]) Glucosamine-Chondroitin 1500 / 1200 MG Oral Tablet Glu cosamine-Chondroitin 1500 / 1200 MG Oral Tablet 09/08/2020 12:00:00 AM EST 1 active Glucosamine-Chondroitin ZANE (Levi Bain MD [facility]) atorvastatin 10 MG Oral Tablet ATORVASTATIN CALCIUM 08/25/2020 1 2:00:00 AM EST tablet 90 TAKE ONE TABLET BY MOUTH EVERY D AY TAKE ONE TABLET BY MOUTH EVERY DAY SOLD: 08/26/2020 [facility] 100 mg 08/25/2020 12:00:00 AM EST tablet 30 TAKE ONE TABLET BY MOUTH EVERY DAY TAKE ONE TABLET BY MOUTH EVERY DAY SOLD: 08/26/2020 [facility] atorvastatin 10 MG Oral Tablet Atorvastatin Calcium 10 MG Atorvastatin Calcium 10 MG 08/24/2020 12:00:00 AM EST 1.0 {tablet} activ e Atorvastatin Calcium 10 MG eCW1 ([facility]) Losartan Potassium 100 MG Oral Tablet Losartan Potassium 100 MG 08/24/2020 12:00:00 AM EST 1.0 {tablet} active Lo sartan Potassium 100 MG eCW1 ([facility]) atorvastatin 10 MG Oral Tablet Atorvastatin Calcium 10 MG Atorvastatin Calcium 10 MG 08/24/2020 12:00:00 AM EST 1.0 {tablet} activ e Atorvastatin Calcium 10 MG eCW1 ([facility]) Ciprofloxacin 250 MG Oral Tablet Ciprofloxacin HCl 250 MG Ciprofloxacin HCl 250 MG 07/23/2020 12:00:00 AM EDT 1.0 {tablet} activ e Ciprofloxacin HCl 250 MG eCW1 ([facility]) 250 mg 07/23/2020 12:00:00 AM EDT tablet 6 TAKE ONE TABLET BY MOUTH EVERY 12 HOURS FOR 3 DAYS TAKE ONE TABLET BY MOUTH EVERY 12 HOURS FOR 3 DAYS JOSE [facility] Ciprofloxacin 250 MG Oral Tablet Ciprofloxacin HCl 250 MG Ciprofloxacin HCl 250 MG 07/23/2020 12:00:00 AM EDT 1.0 {tablet} activ e Ciprofloxacin HCl 250 MG eCW1 ([facility]) Ciprofloxacin 250 MG Oral Tablet Ciprofloxacin HCl 250 MG Ciprofloxacin HCl 250 MG 07/23/2020 12:00:00 AM EDT 1.0 {tablet} activ e Ciprofloxacin HCl 250 MG eCW1 ([facility]) Ciprofloxacin 250 MG Oral Tablet Ciprofloxacin HCl 250 MG Ciprofloxacin HCl 250 MG 07/23/2020 12:00:00 AM EDT 1.0 {tablet} activ e Ciprofloxacin HCl 250 MG eCW1 ([facility]) valacyclovir 1000 MG Oral Tablet VALACYCLOVIR HCL 07/13/2020 12: 00:00 AM EDT tablet 90 TAKE ONE TABLET BY MOUTH EVERY D AY TAKE ONE TABLET BY MOUTH EVERY DAY SOLD: 10/17/2020 [facility] 1 gram 07/13/2020 12:00:00 AM EDT tablet 90 TAKE ONE TABLET BY MOUTH EVERY DAY TAKE ONE TABLET BY MOUTH EVERY DAY SOLD: 07/16/2020 [facility] 500 mg 04/24/2020 12:00:00 AM EDT tablet extended release 24 hr 90 TAKE ONE TABLET BY MOUTH WITH EVENING MEAL TAKE ONE TABLET BY MOUTH WITH EVENING MEAL SOLD: 04/25/2020 [facility] 500 mg 04/24/2020 12:00:00 AM EDT tablet extended release 24 hr 90 TAKE ONE TABLET BY MOUTH WITH EVENING MEAL TAKE ONE TABLET BY MOUTH WITH EVENING MEAL SOLD: 07/31/2020 [facility] 50 mg 04/24/2020 12:00:00 AM EDT tablet 90 TAKE ONE TABLET BY MOUTH EVERY DAY TAKE ONE TABLET BY MOUTH EVERY DAY SOLD: 07/23/2020 [facility] 50 mg 04/24/2020 12:00:00 AM EDT tablet 90 TAKE ONE TABLET BY MOUTH EVERY DAY TAKE ONE TABLET BY MOUTH EVERY DAY SOLD: 04/25/2020 [facility] 40 mg 04/17/2020 12:00:00 AM EDT capsule,delayed release (DR/EC) 90 TAKE ONE CAPSULE BY MOUTH EVERY DAY TAKE ONE CAPSULE BY MOUTH EVERY DAY SOLD: 07/23/2020 [facility] 40 mg 04/17/2020 12:00:00 AM EDT capsule,delayed release (DR/EC) 90 TAKE ONE CAPSULE BY MOUTH EVERY DAY TAKE ONE CAPSULE BY MOUTH EVERY DAY SOLD: 04/18/2020 [facility] evaluate and treat UNK 03/25/2020 12:00:00 AM EDT suspended Physical Therapy evaluate and tr eat eCW1 ([facility]) Physical Therapy evaluate and treat UNK 03/25/2020 12:00:00 AM EDT suspended Physical Therapy evaluate and tr eat eCW1 ([facility]) Physical Therapy evaluate and treat UNK 03/25/2020 12:00:00 AM EDT suspended Physical Therapy evaluate and tr eat eCW1 ([facility]) Physical Therapy evaluate and treat UNK 03/25/2020 12:00:00 AM EDT active Physical Therapy evaluate and tr eat eCW1 ([facility]) Physical Therapy evaluate and treat UNK 03/25/2020 12:00:00 AM EDT suspended Physical Therapy evaluate and tr eat eCW1 ([facility]) Physical Therapy evaluate and treat UNK 03/25/2020 12:00:00 AM EDT suspended Physical Therapy evaluate and tr eat eCW1 ([facility]) Physical Therapy evaluate and treat UNK 03/25/2020 12:00:00 AM EDT suspended Physical Therapy evaluate and tr eat eCW1 ([facility]) 1 gram 01/12/2020 12:00:00 AM EDT tablet 90 TAKE ONE TABLET BY MOUTH EVERY DAY TAKE ONE TABLET BY MOUTH EVERY DAY SOLD: 01/17/2020 [facility] 1 gram 01/12/2020 12:00:00 AM EDT tablet 90 TAKE ONE TABLET BY MOUTH EVERY DAY TAKE ONE TABLET BY MOUTH EVERY DAY SOLD: 04/18/2020 [facility] 1 gram 07/22/2019 12:00:00 AM EDT tablet 90 TAKE ONE TABLET BY MOUTH EVERY DAY TAKE ONE TABLET BY MOUTH EVERY DAY SOLD: 10/18/2019 [facility] Losartan Potassium 50 MG Oral Tablet LOSARTAN POTASSIUM 07/2019 12:00:00 AM EDT tablet 90 TAKE ONE TABLET BY MOUTH ARCELIA DAY TAKE ONE TABLET BY MOUTH EVERY DAY SOLD: 10/18/2019 [facility] 50 mg 07/17/2019 12:00:00 AM EDT tablet 90 TAKE ONE TABLET BY MOUTH EVERY DAY TAKE ONE TABLET BY MOUTH EVERY DAY SOLD: 01/22/2020 [facility] 40 mg 07/17/2019 12:00:00 AM EDT capsule,delayed release (DR/EC) 90 TAKE ONE CAPSULE BY MOUTH EVERY MORNING TAKE ONE CAPSULE BY MOUTH EVERY MORNING SOLD: 01/22/2020 [facility] 40 mg 07/17/2019 12:00:00 AM EDT capsule,delayed release (DR/EC) 90 TAKE ONE CAPSULE BY MOUTH EVERY MORNING TAKE ONE CAPSULE BY MOUTH EVERY MORNING SOLD: 10/18/2019 [facility] 500 mg 07/17/2019 12:00:00 AM EDT tablet extended release 24 hr 90 TAKE ONE TABLET BY MOUTH ONCE DAILY WITH EVENING MEAL TAKE ONE TABLET BY MOUTH ONCE DAILY WITH EVENING MEAL SOLD: 10/18/2019 [facility] 500 mg 07/17/2019 12:00:00 AM EDT tablet extended release 24 hr 90 TAKE ONE TABLET BY MOUTH ONCE DAILY WITH EVENING MEAL TAKE ONE TABLET BY MOUTH ONCE DAILY WITH EVENING MEAL SOLD: 01/22/2020 [facility] Insurance Providers Payer name Policy type / Coverage type Policy ID Covered alliance party ID Covered alliance party's relationship to shah Policy Shah Plan Information [facility] [employer] PROGRAM [id number] SP [id number] [facility] [employer] [id number] SP [id number] [facility] Other 0 Self 0 EXCELLUS C [id number] Self [id number] EXCELLUS C [id number] Self [id number] [facility] FED[employer]AL EM[employer]OYEE PROGRAM [id number] SP [id number] [facility] FEDERAL B [id number] O [id number] [facility] FED[employer]AL EMPLOYEE PROGRAM [id number] SP [id number] [facility] Federal Plan Commercial [id number] Self [id number] ANSI-Commercial [id number] ANSI-Commercial [id number] [facility] Health Maintenance Organization ([facility]) [id number] Self [id number] EXCELLUS BS FEDERAL [id number] SP [id number] EXCELLUS [facility] [id number] SP [id number] [facility] Health Maintenance Organization (HMO) [id number] Self [id number] EXCELLUS [employer]BS FEDERAL [id number] SP [id number] BC BS [place] [employer] FEDERAL B [id number] S [id number] BCBS Federal Plan Commercial Self BC BS [place] [employer] FEDERAL [id number] SP [id number] BC/BS OF [place] P [id number] S [id number] Problems, Conditions, and Diagnoses Code Display Name Description Problem Type Effective Dates Data Source(s) [id number] Essential hypertension Essential hypertension Problem 09/09/2020 12:00:00 AM EST MEDENT ([facility], ) 379.21 Vitreous Disorders Degeneration Vitreous Disorders Deg eneration Problem 09/08/2020 12:00:00 AM EST ZANE (Levi Bain MD [facility]) 375.15 Dry Eye Syndrome Dry Eye Syndrome Problem 09/08/2020 12 :00:00 AM EST ZANE (Levi Bain MD [facility]) 366.16 Cataract Senile Nuclear Cataract Senile Nuclear Proble m 09/08/2020 12:00:00 AM EST ZANE (Levi Bain MD [facility]) 250.00 Diabetes Mellitus Type 2 Without Complic ation Diabetes Mellitus Type 2 Without Complication Problem 09/08/2020 12:00:00 AM EST ZANE (Dionicio Bain MD [facility]) Z79.84 Taking Medication For Diabetes Long-term Use of Oral Hypoglycemics Taking Medication For Diabetes Long-term Use of Oral Hypoglycemics Problem 09/08/2020 12:00:00 AM EST ZANE (Levi Bain MD [facility]) E78.2 [id number] Mixed hyperlipidemia Problem 03/25/2020 12:0 0:00 AM EDT eCW1 ([facility]) G89.29 [id number] Other chronic pain Problem 03/25/2020 12:00: 00 AM EDT eCW1 ([facility]) R92.2 Inconclusive mammogram Inconclusive mammogram Diagnosi s 06/22/2020 12:55:53 PM [facility] Z12.31 Encounter for screening mammogram for ma lignant neoplasm of breast Encounter for screening mammogram for malignant neoplasm of breast Diagnosis 06/22/2020 12:30:00 PM [facility] Surgeries/Procedures Procedure Description Date Indications Data Source(s) Surgical / procedural history Cholecyst ectomy 1987, Hysterectomy 2001, Bladder Sling 2001, DNS 1982 Surgical / procedural history Cholecyst ectomy 1987, Hysterectomy 2001, Bladder Sling 2001, DNS 1982 09/08/2020 12:00:00 AM EST ZANE (Levi Bain MD [facility]) Medical Eye Exam Medical Eye Exam 09/08/2020 12:00:00 AM EST ZANE (Levi Bain MD [facility]) DO NOT USE PRIOR TO 02/06/2016 US BREAST I NCLUDING AXILLA COMPLETE BILATERAL 76046 DO NOT USE PRIOR TO 02/06/2016 US BREAST I NCLUDING AXILLA COMPLETE BILATERAL 27147 Routine 06/22/2020 1:21 PM EDT Dense breasts 06/22/2020 01:21:49 PM EDT Dense breasts [facility] Dense breasts MAMMO DIGITAL SCREENING BILATERAL G0202 MAMMO DIGITAL SCREENING BILATERAL G0202 Routine 06/22/2020 12:51 PM EDT Encounter for screening mammogram for malignant neoplasm of breast 06/22/2020 12:51:54 PM EDT Encounter for screening mammogram for ma lignant neoplasm of breast [facility] Encounter for screening mammogram for ma lignant neoplasm of breast THERAPEUTIC PX 1/> AREAS EACH 15 MIN EXERCISES 020 12:00:00 AM EDT MEDENT ([facility]) Physical Therapy Eval - Low Complexity 04/07/2020 12:0 0:00 AM EDT MEDENT ([facility]) Results ID Date Data Source [id number] 10/30/2020 09:00:00 AM EST [facility] Name Value Range Interpretation Code Description Data Areli rce(s) Supporting Document(s) SARS coronavirus 2 RNA Not Detected [facility] [place] This lab was ordered by [facility] and reported by [facility]. ID Date Data Source URINE CULTURE 07/26/2020 07:55:44 AM EDT eCW1 ([facility]) Name Value Range Interpretation Code Description Data Areli rce(s) Supporting Document(s) URINE CULTURE eCW1 ([facility]) ID Date Data Source Basic Metabolic Profile (BMP) 07/26/2020 07:55:39 AM EDT eCW 1 ([facility]) Name Value Range Interpretation Code Description Data Areli rce(s) Supporting Document(s) 112 GLUCOSE, FASTING eCW1 ([facility]) 0.78 CREATININE FOR GFR eCW1 ([facility]) 15 BLOOD UREA NITROGEN eCW1 ([facility]) 4.6 POTASSIUM SERUM eCW1 ([facility]) 104 CHLORIDE LEVEL eCW1 ([facility]) 142 SODIUM LEVEL eCW1 ([facility]) > 60.0 GLOMERULAR FILTRATION RATE eCW 1 ([facility]) 31 CARBON DIOXIDE LEVEL eCW1 ([facility]) 9.8 CALCIUM LEVEL eCW1 ([facility]) ID Date Data Source CBC with Differential 07/26/2020 07:55:32 AM EDT eCW1 ([facility]) Name Value Range Interpretation Code Description Data Areli rce(s) Supporting Document(s) 4.64 RED BLOOD COUNT eCW1 ([facility]) 14.6 HEMOGLOBIN eCW1 ([facility]) 8.2 WHITE BLOOD COUNT eCW1 ([facility]) 45.6 HEMATOCRIT eCW1 ([facility]) 98.3 MEAN CORPUSCULAR VOLUME eCW1 ( [facility]) 31.5 MEAN CORPUSCULAR HEMOGLOBIN eC W1 ([facility]) 32.0 MEAN CORPUSCULAR HGB CONC eCW1 ([facility]) 12.0 RED CELL DISTRIBUTION WIDTH eC W1 ([facility]) 312 PLATELET COUNT, AUTOMATED eCW1 ([facility]) 55.0 NEUTROPHILS % eCW1 ([facility]) 34.1 LYMPH % eCW1 ([facility]) 7.1 MONO % eCW1 ([facility]) 2.7 EOS % eCW1 ([facility]) 4.5 NEUTROPHILS # eCW1 ([facility]) 0.6 BASO % eCW1 ([facility]) 2.8 LYMPH # eCW1 ([facility]) 0.6 MONO # eCW1 ([facility]) 0.2 EOS # eCW1 ([facility]) 0.1 BASO # eCW1 ([facility]) ID Date Data Source Urinalysis, no micro 07/23/2020 04:16:27 AM EDT eCW1 ([facility]) Name Value Range Interpretation Code Description Data Areli rce(s) Supporting Document(s) 1.005 Spec gravity eCW1 ([facility]) 7 pH eCW1 ([facility]) trace Protein eCW1 ([facility]) + Nitrate eCW1 ([facility]) ++ Leukocyte eCW1 ([facility]) - Glucose eCW1 ([facility]) - Bilirubin eCW1 ([facility]) - Urobili eCW1 ([facility]) - Ketones eCW1 ([facility]) trace Blood eCW1 ([facility]) yes Internal QC Acceptable (Y/N) e CW1 ([facility]) ID Date Data Source [id number] 06/22/2020 06:03:56 PM EDT Health system MAMMO DIGITAL SCREENING BILATERAL [id number] INAL RESULTInterpreted by:Patsy Lee MDBILATERAL DIGITAL MAMMOGRAM WITH COMPUTER-AIDED DETECTION; HAND-HELD BILATERAL BREAST ULTRASOUND.HISTORY: Screening mammography. The patient reports no family history of breast cancer or prior breast procedure.[facility] RISK ASSESSMENT MODEL:5 Year Calculated Risk: 1.0%Average Patient 5 Year Risk: 1.6%Lifetime Risk: 6.5%Average Patient Lifetime Risk: 9.8%COMPARISON: Mammography dated 03/26/2019, 03/08/2018, 02/23/2017, 11/22/2015, 10/09/2014, 02/02/2012.LAST REPORTED CLINICAL BREAST EXAM: Un known.TECHNIQUE: Craniocaudal and mediolateral oblique digital mammograms were obtained with tomosynthesis. Computer-aided detection was utilized. Ultrasound of each breast was performed as a screening procedure and included evaluation of all four quadrants, the retroareolar space and axilla. FINDINGS: The breasts are heterogeneously dense, which may obscure small masses (category C). No abnormal mass, calcification or architectural distortion is visualized. There has been no significant interval change.Ultrasound of both breasts is compared to 03/26/2019. The background echotexture is heterogeneous. At the 3:00 radian of the right breast, 1 cm from the nipple, a 4 x 3 x 4 mm simple cyst is again seen, unchanged. At the 3:00 radian of the left breast, a 3 mm mildly complicated cyst is identified. This was not present previously and follow-up is suggested to document stability. IMPRESSION: 1. Probably benign mammographic appearance of the breasts.2. Follow up targeted left breast ultrasound in 6 [facility] is suggested to document stability of a newly-discovered 3 mm cyst. BI- RADS 3 - PROBABLY BENIGN - SHORT INTERVAL FOLLOWUP SUGGESTED.This document has been electronically signed by Norm Mckeon MD on 06/22/2020 6:01 PM Name Value Range Interpretation Code Description Data Areli rce(s) Supporting Document(s) ID Date Data Source [id number] 06/22/2020 06:03:56 PM EDT Health system US BREAST INCLUDING AXILLA COMPLETE BILA TERAL [id number] RESULTInterpreted by:Patsy Lee MDBILATERAL DIGITAL MAMMOGRAM WITH COMPUTER- AIDED DETECTION; HAND-HELD BILATERAL BREAST ULTRASOUND.HISTORY: Screening mammography. The patient reports no family history of breast cancer or prior breast procedure.[facility] RISK ASSESSMENT MODEL:5 Year Calculated Risk: 1.0%Average Patient 5 Year Risk: 1.6%Lifetime Risk: 6.5%Average Patient Lifetime Risk: 9.8%COMPARISON: Mammography dated 03/26/2019, 03/08/2018, 02/23/2017, 11/22/2015, 10/09/2014, 02/02/2012.LAST REPORTED CLINICAL BREAST EXAM: Unknown.TECHNIQUE: Craniocaudal and mediolateral oblique digital mammograms were obtained with tomosynthesis. Computer-aided detection was utilized. Ultrasound of each breast was performed as a screening procedure and included evaluation of all four quadrants, the retroareolar space and axilla. FINDINGS: The breasts are heterogeneously dense, which may obscure small masses (category C). No a bnormal mass, calcification or architectural distortion is visualized. There has been no significant interval change.Ultrasound of both breasts is compared to 03/26/2019. The background echotexture is heterogeneous. At the 3:00 radian of the right breast, 1 cm from the nipple, a 4 x 3 x 4 mm simple cyst is again seen, unchanged. At the 3:00 radian of the left breast, a 3 mm mildly complicated cyst is identified. This was not present previously and follow-up is suggested to document stability. IMPRESSION: 1. Probably benign mammographic appearance of the breasts.2. Follow up targeted left breast ultrasound in 6 months is suggested to document stability of a newly-discovered 3 mm cyst. BI- RADS 3 - PROBABLY BENIGN - SHORT INTERVAL FOLLOWUP SUGGESTED.This document has been electronically signed by Norm Mckeon MD on 06/22/2020 6:01 PM Name Value Range Interpretation Code Description Data Areli rce(s) Supporting Document(s) ID Date Data Source LIPID PANEL (CARDIAC RISK) 04/23/2020 08:31:40 AM EDT eCW1 ( [facility]) Name Value Range Interpretation Code Description Data Areli rce(s) Supporting Document(s) Cholesterol in HDL [Moles/volume] in Serum or Plasma 42 HDL CHOLESTEROL eCW1 ([facility]) Cholesterol [Moles/volume] in Serum or Plasma 245 CHOLESTEROL LEVEL eCW1 ([facility]) Triglyceride [Mass/volume] in Serum or Plasma by calculation 162 TRIGLYCERIDES LEVEL eCW1 ([facility]) Cholesterol in LDL [Mass/volume] in Serum or Plasma by calculation 171 LDL CHOLESTEROL eC1 ([facility]) 5.833 CHOLESTEROL RISK RATIO eCW1 ([facility]) 203 NON-HDL-C eCW1 ([facility]) ID Date Data Source [id number] 04/23/2020 08:30:03 AM EDT eCW1 ([facility]) Name Value Range Interpretation Code Description Data Areli rce(s) Supporting Document(s) Hemoglobin A1c/Hemoglobin.total in Blood 6.1 HEMOGLOBIN A1c eCW1 ([facility]) ID Date Data Source Comprehensive Metabolic Profile (CMP) 04/23/2020 08:28:57 AM EDT eCW1 ([facility]) Name Value Range Interpretation Code Description Data Areli rce(s) Supporting Document(s) 16 BLOOD UREA NITROGEN eCW1 ([facility]) 98 GLUCOSE, FASTING eCW1 ([facility]) 0.78 CREATININE FOR GFR eCW1 ([facility]) > 60.0 GLOMERULAR FILTRATION RATE eCW 1 ([facility]) 142 SODIUM LEVEL eCW1 ([facility]) 4.1 POTASSIUM SERUM eCW1 ([facility]) 107 CHLORIDE LEVEL eCW1 ([facility]) 68 ALT/SGPT eCW1 ([facility]) 29 CARBON DIOXIDE LEVEL eCW1 ([facility]) 9.2 CALCIUM LEVEL eCW1 ([facility]) 27 AST/SGOT eCW1 ([facility]) 4.1 ALBUMIN eCW1 ([facility]) 109 ALKALINE PHOSPHATASE eCW1 ([facility]) 0.4 BILIRUBIN,TOTAL eCW1 ([facility]) 7.2 TOTAL PROTEIN eCW1 ([facility]) 1.3 ALBUMIN/GLOBULIN RATIO eCW1 ([facility]) ID Date Data Source [id number] 03/25/2020 12:00:00 AM EDT [facility] Fernando Jurado PA Patient Name: KRUPA ROGERS [facility] Date of : 1960[place] [id number] Date of Exam: 03/25/2020PH#: Fax: [phone] EXAM: KNEE LEFT (COMPLETE) X-RAYCLINICAL INFORMATION: Atraumatic pain.PRIORS: None.The compartments are symmetric and well maintained. There is no acutefracture or destructive osseous lesion.HANH Davis/Neville covarrubias for referring GERARDO ROGERS to our office. Electronically Signed - RASHEEDA MONTGOMERY DO 03/26/20 17:09 Name Value Range Interpretation Code Description Data Areli rce(s) Supporting Document(s) Procedure Social History Code Duration Value Status Description Data Source(s ) Smoking 09/08/2020 03:36:47 PM EST Ex-smoker (finding) complet ed Ex-smoker (finding) ZANE (Levi Bain MD [facility]) Vital Signs ID Date Data Source UNK Name Value Range Interpretation Code Description Data Source(s) Body surface area Derived from formula 2.10 m2 2.10 m2 [facility] ([facility]) Body weight 98.885 kg 98.885 kg [facility] ([facility]) Sunray body weight 135 [lb_av] 135 [facility]lb_av] [facility] Body mass index (BMI) [Ratio] 34.1 kg/m2 34.1 k g/m2 [facility] ([facility]) Body weight 218.00 [lb_av] 218.00 [lb_av] [facility] Body height 67 [in_i] 67 [in_i] [facility] ([facility]) 5'7" Diastolic blood pressure 78 mm[Hg] 78 mm[Hg] [facility] ([facility]) Systolic blood pressure 128 mm[Hg] 128 mm[Hg] [facility] Diastolic blood pressure 80 mm[Hg] 80 mm[Hg] eCW1 ([facility]) Systolic blood pressure 150 mm[Hg] 150 mm[Hg] e CW1 ([facility]) Body temperature 98.8 [degF] 98.8 [degF] eCW1 ( [facility]) Respiratory rate 18 /min 18 /min eCW1 ([facility]) Heart rate 88 /min 88 /min eCW1 ([facility]) Body mass index (BMI) [Ratio] 34.14 kg/m2 34.14 kg/m2 eCW1 ([facility]) Body height [in_i] eCW1 ([facility]) Body weight 218 [lb_av] 218 [lb_av] eCW1 ([facility]) Diastolic blood pressure 90 mm[Hg] 90 mm[Hg] eCW1 ([facility]) Systolic blood pressure 160 mm[Hg] 160 mm[Hg] e CW1 ([facility]) Body temperature 96.8 [degF] 96.8 [degF] eCW1 ( [facility]) Respiratory rate 18 /min 18 /min eCW1 ([facility]) Heart rate 98 /min 98 /min eCW1 ([facility]) Body mass index (BMI) [Ratio] 34.14 kg/m2 34.14 kg/m2 eCW1 ([facility]) Body height [in_i] eCW1 ([facility]) Body weight 218 [lb_av] 218 [lb_av] eCW1 ([facility]) Diastolic blood pressure 88 mm[Hg] 88 mm[Hg] eCW1 ([facility]) Systolic blood pressure 148 mm[Hg] 148 mm[Hg] e CW1 ([facility]) Body temperature 98.4 [degF] 98.4 [degF] eCW1 ( [facility]) Respiratory rate 18 /min 18 /min eCW1 ([facility]) Heart rate 104 /min 104 /min eCW1 ([facility]) Body mass index (BMI) [Ratio] 33.76 kg/m2 33.76 kg/m2 eCW1 ([facility]) Body height [in_i] eCW1 ([facility]) Body weight 215.6 [lb_av] 215.6 [lb_av] eCW1 ([facility]) Patient Treatment Plan of Care Planned Activity Planned Date Details Description Data Source (s) atorvastatin 10 MG Oral Tablet 08/24/2020 12:00:00 AM EST eCW1 ([facility]) Losartan Potassium 100 MG Oral Tablet 08/24/2020 12:00:00 AM EST eCW1 ([facility]) atorvastatin 10 MG Oral Tablet 08/24/2020 12:00:00 AM EST eCW1 ([facility]) Ciprofloxacin 250 MG Oral Tablet 07/23/2020 12:00:00 AM EDT eCW1 ([facility]) Ciprofloxacin 250 MG Oral Tablet 07/23/2020 12:00:00 AM EDT eCW1 ([facility]) Ciprofloxacin 250 MG Oral Tablet 07/23/2020 12:00:00 AM EDT eCW1 ([facility]) Ciprofloxacin 250 MG Oral Tablet 07/23/2020 12:00:00 AM EDT eCW1 ([facility]) Physical Therapy evaluate and treat 03/25/2020 12:00:00 AM EDT eCW1 ([facility])
[2020-11-04] MEDS ORDERED: LIDOCAINE 2% 100MG/5ML SDV (FOR ANES.) As Ordered ONE (12:26)
[2020-11-04] MEDS ORDERED: propofoL 200 MG/20 ML VIAL As Ordered ONE ×2 (12:26→13:03)
--- NOTE | 2020-11-04 13:31 | ROOR ---
Patient Name: Meryl Manzano Procedure Date: 11/04/2020 12:41 PM Date of : 1960 Age: 60 Room: [facility] Gender: Female Note Status: Finalized Procedure: Upper GI endoscopy Indications: Dysphagia, Heartburn Providers: Abdullahi Sevilla MD Referring MD: Maryam Flannery NP Requesting Provider: Medicines: Monitored Anesthesia Care Complications: No immediate complications. Procedure: Pre-Anesthesia Assessment: - Prior to the procedure, a History and Physical was performed, and patient medications and allergies were reviewed. The patient is competent. The risks and benefits of the procedure and the sedation options and risks were discussed with the patient. All questions were answered and informed consent was obtained. Patient identification and proposed procedure were verified by the physician, the nurse and the anesthesiologist in the procedure room. Mental Status Examination: alert and oriented. Airway Examination: normal oropharyngeal airway and neck mobility. Respiratory Examination: clear to auscultation. CV Examination: normal. Prophylactic Antibiotics: The patient does not require prophylactic antibiotics. Prior Anticoagulants: The patient has taken no previous anticoagulant or antiplatelet agents. ASA Grade Assessment: II - A patient with mild systemic disease. After reviewing the risks and benefits, the patient was deemed in satisfactory condition to undergo the procedure. The anesthesia plan was to use monitored anesthesia care (MAC). Immediately prior to administration of medications, the patient was re-assessed for adequacy to receive sedatives. The heart rate, respiratory rate, oxygen saturations, blood pressure, adequacy of pulmonary ventilation, and response to care were monitored throughout the procedure. The physical status of the patient was re-assessed after the procedure. The Endoscope was introduced through the mouth, and advanced to the second part of duodenum. The upper GI endoscopy was accomplished without difficulty. The patient tolerated the procedure well. Findings: The examined esophagus was normal. The Z-line was regular and was found at the gastroesophageal junction. Biopsies were obtained from the proximal and distal esophagus with cold forceps for histology of suspected eosinophilic esophagitis. Verification of patient identification for the specimen was done by the physician and nurse using the patient's name, date and medical record number. Estimated blood loss was minimal. Scattered mild inflammation characterized by erythema and granularity was found in the gastric antrum. Biopsies were taken with a cold forceps for Helicobacter pylori testing. The duodenal bulb and second portion of the duodenum were normal. Impression: - Normal esophagus. - Z-line regular, at the gastroesophageal junction. Biopsied. - Gastritis. Biopsied. - Normal duodenal bulb and second portion of the duodenum. Recommendation: - Patient has a contact number available for emergencies. The signs and symptoms of potential delayed complications were discussed with the patient. Return to normal activities tomorrow. Written discharge instructions were provided to the patient. - Chopped diet, high fiber diet and Anti-acid reflux diet -- small meals, sit upright atleast 1 hour after meals, avoid fatty/ oily foods and avoid foods that cause reflux. - Continue present medications. - Await pathology results. - Follow an antireflux regimen. - Perform routine esophageal manometry if symptoms persist. - Telephone GI clinic for pathology results in 2 weeks. - Return to primary care physician. Procedure Code(s): --- Professional --- 70222, Esophagogastroduodenoscopy, flexible, transoral; with biopsy, single or multiple Diagnosis Code(s): --- Professional --- K29.70, Gastritis, unspecified, without bleeding R13.10, Dysphagia, unspecified R12, Heartburn CPT copyright 2019 [employer]. All rights reserved. The codes documented in this report are preliminary and upon sales account leader review may be revised to meet current compliance requirements. Abdullahi Sevilla MD Abdullahi Sevilla MD 11/04/2020 1:31:00 PM Electronically signed by Abdullahi Sevilla MD Number of Addenda: 0 Note Initiated On: 11/04/2020 12:41 PM Estimated Blood Loss: Estimated blood loss: none.
--- NOTE | 2020-11-04 13:35 | ROOR ---
Patient Name: Meryl Manzano Procedure Date: 11/04/2020 12:42 PM Date of : 1960 Age: 60 Room: [facility] Gender: Female Note Status: Finalized Procedure: Colonoscopy Indications: High risk colon cancer surveillance: Personal history of colonic polyps Providers: Abdullahi Sevilla MD Referring MD: Maryam Flannery NP Requesting Provider: Medicines: Monitored Anesthesia Care Complications: No immediate complications. Procedure: Pre-Anesthesia Assessment: - Prior to the procedure, a History and Physical was performed, and patient medications and allergies were reviewed. The patient is competent. The risks and benefits of the procedure and the sedation options and risks were discussed with the patient. All questions were answered and informed consent was obtained. Patient identification and proposed procedure were verified by the physician, the nurse and the anesthesiologist in the procedure room. Mental Status Examination: alert and oriented. Airway Examination: normal oropharyngeal airway and neck mobility. Respiratory Examination: clear to auscultation. CV Examination: normal. Prophylactic Antibiotics: The patient does not require prophylactic antibiotics. Prior Anticoagulants: The patient has taken no previous anticoagulant or antiplatelet agents. ASA Grade Assessment: II - A patient with mild systemic disease. After reviewing the risks and benefits, the patient was deemed in satisfactory condition to undergo the procedure. The anesthesia plan was to use monitored anesthesia care (MAC). Immediately prior to administration of medications, the patient was re-assessed for adequacy to receive sedatives. The heart rate, respiratory rate, oxygen saturations, blood pressure, adequacy of pulmonary ventilation, and response to care were monitored throughout the procedure. The physical status of the patient was re-assessed after the procedure. The Colonoscope was introduced through the anus and advanced to the terminal ileum, with identification of the appendiceal orifice and IC valve. The colonoscopy was performed without difficulty. The patient tolerated the procedure well. The quality of the bowel preparation was good. The terminal ileum, ileocecal valve, appendiceal orifice, and rectum were photographed. Scope insertion time was 2 minutes. Scope withdrawal time was 9 minutes. The total duration of the procedure was 11 minutes. Findings: The perianal and digital rectal examinations were normal. The terminal ileum appeared normal. Two sessile polyps were found in the sigmoid colon. The polyps were 3 to 6 mm in size. These polyps were removed with a cold snare. Resection and retrieval were complete. Verification of patient identification for the specimen was done by the physician and nurse using the patient's name, date and medical record number. Estimated blood loss was minimal. A few medium-mouthed diverticula were found in the sigmoid colon. Non-bleeding external and internal hemorrhoids were found during retroflexion. The hemorrhoids were medium-sized. Impression: - The examined portion of the ileum was normal. - Two 3 to 6 mm polyps in the sigmoid colon, removed with a cold snare. Resected and retrieved. - Diverticulosis in the sigmoid colon. - Non-bleeding external and internal hemorrhoids. Recommendation: - Patient has a contact number available for emergencies. The signs and symptoms of potential delayed complications were discussed with the patient. Return to normal activities tomorrow. Written discharge instructions were provided to the patient. - Chopped diet, high fiber diet and Anti-acid reflux diet -- small meals, sit upright atleast 1 hour after meals, avoid fatty/ oily foods and avoid foods that cause reflux. - Continue present medications. - Await pathology results. - Repeat colonoscopy in 5-10 years for surveillance based on pathology results. - Telephone GI clinic for pathology results in 2 weeks. - Follow the recommendations as per the other procedure note. - Return to primary care physician. Procedure Code(s): --- Professional --- 72112, Colonoscopy, flexible; with removal of tumor(s), polyp(s), or other lesion(s) by snare technique Diagnosis Code(s): --- Professional --- Z86.010, Personal history of colonic polyps K64.8, Other hemorrhoids K63.5, Polyp of colon K57.30, Diverticulosis of large intestine without perforation or abscess without bleeding CPT copyright 2019 [employer]. All rights reserved. The codes documented in this report are preliminary and upon blue split trimmer review may be revised to meet current compliance requirements. Abdullahi Sevilla MD Abdullahi Sevilla MD 11/04/2020 1:34:37 PM Electronically signed by Abdullahi Sevilla MD Number of Addenda: 0 Note Initiated On: 11/04/2020 12:42 PM Estimated Blood Loss: Estimated blood loss was minimal.
[2020-11-04 13:45] VITALS: BP 168/85
== END 2020-11-04 14:04 | disposition home or self-care (01) ==
LOC: M OPP 10:39
PROVIDERS: ATTEND Internal Medicine Gastroenterology
DX: Z12.11 Encounter for screening for malignant neoplasm of colon (principal); Z86.010 Personal history of colon polyps; R13.10 Dysphagia, unspecified; R12 Heartburn; K63.5 Polyp of colon; K57.30 Diverticulosis of large intestine without perforation or abscess without bleeding; K64.8 Other hemorrhoids; D13.0 Benign neoplasm of esophagus; D13.1 Benign neoplasm of stomach; K29.70 Gastritis, unspecified, without bleeding; E11.9 Type 2 diabetes mellitus without complications; J45.909 Unspecified asthma, uncomplicated; E78.5 Hyperlipidemia, unspecified; Z87.891 Personal history of nicotine dependence; Z88.6 Allergy status to analgesic agent; Z79.84 Long term (current) use of oral hypoglycemic drugs; Z79.899 Other long term (current) drug therapy; Z83.3 Family history of diabetes mellitus; Z82.49 Family history of ischemic heart disease and other diseases of the circulatory system; Z80.8 Family history of malignant neoplasm of other organs or systems

== ENCOUNTER → 2020-11-27 | Outpatient (CLI) | payer BC ==
[~2020-11-27] MED LIST changes: -NS 1,000 ML IV ONE
[2020-11-27 09:35] LABS: HEMOGLOBIN A1c 5.8 %
[2020-11-27 09:38] LABS: ALBUMIN 4.1 GM/DL (3.2-5.2); ALT/SGPT 65 U/L (12-78); BILIRUBIN,TOTAL 0.3 MG/DL (0.2-1.0); BLOOD UREA NITROGEN 20 MG/DL (7-18); CALCIUM LEVEL 9.4 MG/DL (8.5-10.1); CARBON DIOXIDE LEVEL 31 MEQ/L (21-32); CHLORIDE LEVEL 105 MEQ/L (98-107); CHOLESTEROL LEVEL 186 MG/DL (<200); CHOLESTEROL RISK RATIO 3.795 (<5); CREATININE FOR GFR 0.82 MG/DL (0.55-1.30); GLOMERULAR FILTRATION RATE > 60.0 (>51); GLUCOSE, FASTING 100 MG/DL (70-100); HDL CHOLESTEROL 49 MG/DL (>40); LDL CHOLESTEROL 114 MG/DL (<100); NON-HDL-C 137 MG/DL; POTASSIUM SERUM 4.4 MEQ/L (3.5-5.1); SODIUM LEVEL 142 MEQ/L (136-145); TOTAL PROTEIN 7.3 GM/DL (6.4-8.2); TRIGLYCERIDES LEVEL 114 MG/DL (<150)
[2020-11-29 11:15] LABS: TOTAL 25(OH) VITAMIN D 42.9 NG/ML (30.0-100.0)
== END ==
LOC: M LAB 08:15
PROVIDERS: ATTEND Nurse Practitioner Adult Health
DX: R73.09 Other abnormal glucose (principal); E55.9 Vitamin D deficiency, unspecified; I10 Essential (primary) hypertension; E78.2 Mixed hyperlipidemia

== ENCOUNTER → 2021-04-14 | Outpatient (CLI) | payer BC ==
--- NOTE | 2021-04-14 15:27 | REP ---
INDICATION: COUGH. COMPARISON: None. FINDINGS: The superior mediastinal structures are midline. The cardiac silhouette is unremarkable in size, shape, and position. The diaphragmatic surfaces of the lungs are regular, and the costophrenic angles are clear. The pulmonary ovalle are clear. The imaged osseous structures are intact. IMPRESSION: There is no acute cardiopulmonary disease. There is no significant change compared to the prior exam. <Electronically signed by Wilmer Fragoso > 04/14/21 [id number]
== END ==
LOC: M PLAIMG 14:52
PROVIDERS: ATTEND Physician Assistant
DX: R05 Cough (principal)

== ENCOUNTER → 2021-04-14 | Outpatient (REF) | payer BC | LOC: M SFHCPLAZ 17:10 | PROVIDERS: ATTEND Physician Assistant | DX: R05 Cough (principal); Z20.828 Contact with and (suspected) exposure to other viral communicable diseases ==

== ENCOUNTER → 2021-05-28 | Outpatient (CLI) | payer BC ==
[2021-05-28 09:08] LABS: HEMATOCRIT 44.1 % (36.0-47.0); HEMOGLOBIN 14.4 g/dl (12.0-15.5); MEAN CORPUSCULAR HGB CONC 32.7 g/dl (32.0-36.5); PLATELET COUNT, AUTOMATED 256 10^3/uL (150-450); WHITE BLOOD COUNT 6.7 10^3/uL (4.0-10.0)
[2021-05-28 09:46] LABS: ALT/SGPT 57 U/L (12-78); BILIRUBIN,TOTAL 0.3 MG/DL (0.2-1.0); BLOOD UREA NITROGEN 17 MG/DL (7-18); CALCIUM LEVEL 9.1 MG/DL (8.5-10.1); CARBON DIOXIDE LEVEL 31 MEQ/L (21-32); CHLORIDE LEVEL 106 MEQ/L (98-107); CHOLESTEROL LEVEL 183 MG/DL (<200); CHOLESTEROL RISK RATIO 4.357 (<5); CREATININE FOR GFR 0.72 MG/DL (0.55-1.30); GLOMERULAR FILTRATION RATE > 60.0 (>51); GLUCOSE, FASTING 111 MG/DL (70-100); HDL CHOLESTEROL 42 MG/DL (>40); LDL CHOLESTEROL 112 MG/DL (<100); NON-HDL-C 141 MG/DL; POTASSIUM SERUM 4.4 MEQ/L (3.5-5.1); SODIUM LEVEL 140 MEQ/L (136-145); THYROID STIMULATING HORMONE 0.975 uIU/ML (0.358-3.740); TOTAL PROTEIN 7.1 GM/DL (6.4-8.2); TRIGLYCERIDES LEVEL 143 MG/DL (<150)
[2021-05-30 12:48] LABS: TOTAL 25(OH) VITAMIN D 43.9 NG/ML (30.0-100.0)
== END ==
LOC: M LAB 08:17
PROVIDERS: ATTEND Nurse Practitioner Adult Health
DX: Z00.00 Encounter for general adult medical examination without abnormal findings (principal); R73.09 Other abnormal glucose; E55.9 Vitamin D deficiency, unspecified; I10 Essential (primary) hypertension; E04.1 Nontoxic single thyroid nodule; E78.2 Mixed hyperlipidemia

== ENCOUNTER → 2021-06-04 | Outpatient (CLI) | payer BC ==
--- NOTE | 2021-06-04 10:00 | REP ---
INDICATION: LEFT ANKLE PAIN COMPARISON: None. TECHNIQUE: AP, lateral, bilateral oblique views. FINDINGS: No acute fracture or dislocation. Skeletal structures and joint spaces are intact and normal. Ankle mortise appears stable. No subcutaneous emphysema or radiodense foreign body. IMPRESSION: No acute fracture or dislocation. No obvious abnormality. <Electronically signed by Joce Carson > 06/04/21 [id number]
== END ==
LOC: M RAD 08:55
PROVIDERS: ATTEND Nurse Practitioner Adult Health
DX: M25.572 Pain in left ankle and joints of left foot (principal)

== ENCOUNTER → 2021-12-20 | Outpatient (CLI) | payer BC ==
[~2021-12-20] MED LIST changes: +LOSA100T45 PO; -LOSA100T50 PO
== END ==
LOC: M RAD 14:31
PROVIDERS: ATTEND Nurse Practitioner Adult Health
DX: M79.621 Pain in right upper arm (principal)

== ENCOUNTER → 2022-08-05 | Outpatient (REF) | payer BC ==
[~2022-08-05] MED LIST changes: -DULE200A INH; +MOME13HF7 INH
[2022-08-05 10:16] LABS: ALBUMIN 3.9 GM/DL (3.2-5.2); ALT/SGPT 86 U/L (12-78); BILIRUBIN,TOTAL 0.5 MG/DL (0.2-1.0); BLOOD UREA NITROGEN 18 MG/DL (7-18); CALCIUM LEVEL 9.4 MG/DL (8.5-10.1); CARBON DIOXIDE LEVEL 28 MEQ/L (21-32); CHLORIDE LEVEL 105 MEQ/L (98-107); CHOLESTEROL LEVEL 189 MG/DL (<200); CHOLESTEROL RISK RATIO 4.609 (<5); GLOMERULAR FILTRATION RATE > 60.0 (>51); GLUCOSE, FASTING 109 MG/DL (70-100); HDL CHOLESTEROL 41 MG/DL (>40); HEMOGLOBIN A1c 6.2 %; LDL CHOLESTEROL 110 MG/DL (<100); NON-HDL-C 148 MG/DL; POTASSIUM SERUM 4.4 MEQ/L (3.5-5.1); SODIUM LEVEL 138 MEQ/L (136-145); TOTAL PROTEIN 7.1 GM/DL (6.4-8.2); TRIGLYCERIDES LEVEL 192 MG/DL (<150)
== END ==
LOC: M LAB REF 09:12
PROVIDERS: ATTEND Nurse Practitioner Adult Health
DX: R73.09 Other abnormal glucose (principal); E55.9 Vitamin D deficiency, unspecified; I10 Essential (primary) hypertension; E04.1 Nontoxic single thyroid nodule

== ENCOUNTER → 2023-01-28 | Outpatient (CLI) | payer BC ==
[2023-01-28 09:05] LABS: HEMOGLOBIN A1c 5.9 % (4.0-6.0)
[2023-01-28 09:10] LABS: ALBUMIN 4.1 G/DL (3.2-5.2); ALKALINE PHOSPHATASE 118 U/L (46-116); ALT/SGPT 102 U/L (7.0-40); AST/SGOT 49 U/L (<34); BILIRUBIN,TOTAL 0.6 MG/DL (0.3-1.2); BLOOD UREA NITROGEN 16 MG/DL (9-23); CALCIUM LEVEL 9.1 MG/DL (8.3-10.6); CARBON DIOXIDE LEVEL 28 MMOL/L (20-31); CHLORIDE LEVEL 108 MMOL/L (98-107); CHOLESTEROL LEVEL 165 MG/DL (<200); CHOLESTEROL RISK RATIO 4.13 (<5); CREATININE FOR GFR 0.67 MG/DL (0.55-1.30); GLOMERULAR FILTRATION RATE > 60.0 (>45); GLUCOSE, FASTING 112 MG/DL (74-106); HDL CHOLESTEROL 39.9 MG/DL (>40); LDL CHOLESTEROL 105.3 MG/DL (<100); NON-HDL-C 125.1 MG/DL; POTASSIUM SERUM 4.1 MMOL/L (3.5-5.1); SODIUM LEVEL 141 MMOL/L (136-145); TOTAL PROTEIN 6.9 G/DL (5.7-8.2); TRIGLYCERIDES LEVEL 99 MG/DL (<150)
[2023-01-28 09:12] LABS: THYROID STIMULATING HORMONE 0.991 uIU/ML (0.55-4.78); TOTAL 25(OH) VITAMIN D 71.6 NG/ML (20.0-100.0)
== END ==
LOC: M LAB 08:17
PROVIDERS: ATTEND Nurse Practitioner Adult Health
DX: I10 Essential (primary) hypertension (principal); R73.09 Other abnormal glucose; E78.2 Mixed hyperlipidemia; E04.1 Nontoxic single thyroid nodule; E55.9 Vitamin D deficiency, unspecified

== ENCOUNTER → 2023-02-24 | Outpatient (CLI) | payer BC ==
[~2023-02-24] MED LIST changes: -LOSA100T45 PO; +LOSA100T46 PO
[2023-02-24 09:13] LABS: HEPATITIS B SURFACE ANTIGEN NEGATIVE (NEGATIVE)
[2023-02-24 09:34] LABS: HEPATITIS C VIRUS ABY INDEX < 0.0 INDEX (<0.8)
[2023-02-24 09:35] LABS: HEPATITIS B CORE ANTIBODY IGM NEGATIVE (NEGATIVE)
== END ==
LOC: M LAB 08:04
PROVIDERS: ATTEND Nurse Practitioner Adult Health
DX: R74.8 Abnormal levels of other serum enzymes (principal)

== ENCOUNTER → 2023-03-06 | Outpatient (CLI) | payer BC | LOC: M RAD 07:48 | PROVIDERS: ATTEND Nurse Practitioner Adult Health | DX: R74.8 Abnormal levels of other serum enzymes (principal); R16.0 Hepatomegaly, not elsewhere classified; K76.0 Fatty (change of) liver, not elsewhere classified; N28.89 Other specified disorders of kidney and ureter ==

== ENCOUNTER → 2023-06-30 | Outpatient (CLI) | payer BC ==
[2023-06-30 09:47] LABS: ALKALINE PHOSPHATASE 109 U/L (46-116); ALT/SGPT 150 U/L (7.0-40); AST/SGOT 78 U/L (<34); BILIRUBIN,TOTAL 0.5 MG/DL (0.3-1.2); BLOOD UREA NITROGEN 15 MG/DL (9-23); CALCIUM LEVEL 9.4 MG/DL (8.3-10.6); CARBON DIOXIDE LEVEL 31 MMOL/L (20-31); CHLORIDE LEVEL 106 MMOL/L (98-107); CREATININE FOR GFR 0.67 MG/DL (0.55-1.30); GLOMERULAR FILTRATION RATE > 60.0 (>45); GLUCOSE, FASTING 101 MG/DL (74-106); POTASSIUM SERUM 4.4 MMOL/L (3.5-5.1); SODIUM LEVEL 139 MMOL/L (136-145)
== END ==
LOC: M LAB 08:58
PROVIDERS: ATTEND Nurse Practitioner Adult Health
DX: I10 Essential (primary) hypertension (principal)

== ENCOUNTER → 2023-08-28 | Outpatient (CLI) | payer BC ==
[2023-08-28 11:27] LABS: BASO % 0.6 % (0.0-1.0); EOS # 0.1 10^3/uL (0.0-0.5); EOS % 2.1 % (0.0-3.0); HEMATOCRIT 45.9 % (36.0-47.0); LYMPH # 2.4 10^3/uL (1.5-5.0); LYMPH % 35.5 % (24.0-44.0); MEAN CORPUSCULAR HEMOGLOBIN 32.2 pg (27.0-33.0); MEAN CORPUSCULAR HGB CONC 32.7 g/dl (32.0-36.5); MEAN CORPUSCULAR VOLUME 98.5 fl (80.0-96.0); MONO # 0.6 10^3/uL (0.0-0.8); MONO % 9.3 % (2.0-8.0); NEUTROPHILS # 3.6 10^3/uL (1.5-8.5); NEUTROPHILS % 52.2 % (36.0-66.0); PLATELET COUNT, AUTOMATED 249 10^3/uL (150-450); RED BLOOD COUNT 4.66 10^6/uL (4.00-5.40); WHITE BLOOD COUNT 6.8 10^3/uL (4.0-10.0)
[2023-08-28 12:07] LABS: ALBUMIN 4.1 G/DL (3.2-5.2); ALKALINE PHOSPHATASE 107 U/L (46-116); ALT/SGPT 144 U/L (7.0-40); AST/SGOT 74 U/L (<34); BILIRUBIN,TOTAL 0.4 MG/DL (0.3-1.2); BLOOD UREA NITROGEN 16 MG/DL (9-23); CALCIUM LEVEL 9.8 MG/DL (8.3-10.6); CARBON DIOXIDE LEVEL 30 MMOL/L (20-31); CHLORIDE LEVEL 104 MMOL/L (98-107); CREATININE FOR GFR 0.64 MG/DL (0.55-1.30); GLOMERULAR FILTRATION RATE > 60.0 (>45); GLUCOSE, FASTING 85 MG/DL (74-106); MAGNESIUM LEVEL 1.9 MG/DL (1.8-2.4); POTASSIUM SERUM 4.6 MMOL/L (3.5-5.1); SODIUM LEVEL 140 MMOL/L (136-145); TOTAL PROTEIN 7.3 G/DL (5.7-8.2)
[2023-08-28 12:08] LABS: THYROID STIMULATING HORMONE 1.295 uIU/ML (0.55-4.78)
== END ==
LOC: M PLALAB 08:30
PROVIDERS: ATTEND Physician Assistant
DX: R07.9 Chest pain, unspecified (principal); I10 Essential (primary) hypertension

== ENCOUNTER 2023-10-30 17:16 | Emergency (ER) | payer BC ==
[~2023-10-30] VITALS: Ht 170.2 cm; Wt 104.2 kg
[2023-10-30] MEDS ORDERED: CARV3.12 (17:36)
[2023-10-30 18:11] LABS: BASO % 0.3 % (0.0-1.0); EOS # 0.3 10^3/uL (0.0-0.5); EOS % 2.8 % (0.0-3.0); HEMATOCRIT 43.7 % (36.0-47.0); HEMOGLOBIN 14.8 g/dl (12.0-15.5); LYMPH # 3.6 10^3/uL (1.5-5.0); LYMPH % 40.7 % (24.0-44.0); MEAN CORPUSCULAR HEMOGLOBIN 32.6 pg (27.0-33.0); MEAN CORPUSCULAR HGB CONC 33.9 g/dl (32.0-36.5); MEAN CORPUSCULAR VOLUME 96.3 fl (80.0-96.0); MONO # 0.7 10^3/uL (0.0-0.8); MONO % 8.2 % (2.0-8.0); NEUTROPHILS # 4.2 10^3/uL (1.5-8.5); NEUTROPHILS % 47.8 % (36.0-66.0); RED BLOOD COUNT 4.54 10^6/uL (4.00-5.40); WHITE BLOOD COUNT 8.9 10^3/uL (4.0-10.0)
[2023-10-30 18:25] LABS: PARTIAL THROMBOPLASTIN TIME 28.4 SECONDS (24.8-34.2)
[2023-10-30 18:38] LABS: ALBUMIN 4.3 G/DL (3.2-5.2); ALKALINE PHOSPHATASE 100 U/L (46-116); ALT/SGPT 120 U/L (7.0-40); AST/SGOT 78 U/L (<34); BILIRUBIN,DIRECT < 0.1 MG/DL (<0.4); BILIRUBIN,TOTAL 0.3 MG/DL (0.3-1.2); BLOOD UREA NITROGEN 18 MG/DL (9-23); CALCIUM LEVEL 10.1 MG/DL (8.3-10.6); CARBON DIOXIDE LEVEL 26 MMOL/L (20-31); CHLORIDE LEVEL 105 MMOL/L (98-107); CK-MB VALUE MASS < 1.0 NG/ML (<3.6); CPK CREATINE PHOSPHOKINASE 72 U/L (34-145); CREATININE FOR GFR 0.64 MG/DL (0.55-1.30); FREE T4 1.07 NG/DL (0.89-1.76); GLOMERULAR FILTRATION RATE > 60.0 (>45); GLUCOSE, FASTING 100 MG/DL (74-106); LIPASE 44 U/L (12-53); MB/CK RELATIVE INDEX 1.38 (< OR =4); POTASSIUM SERUM 5.7 MMOL/L (3.5-5.1); SODIUM LEVEL 135 MMOL/L (136-145); THYROID STIMULATING HORMONE 2.802 uIU/ML (0.55-4.78)
[2023-10-30 18:42] LABS: RSV AMPLIFICATION NEGATIVE (NEGATIVE)
[2023-10-30 19:01] LABS: D-DIMER QUANT 0.5 ug/mL (<0.5)
[2023-10-30 19:40] LABS: CK-MB VALUE MASS < 1.0 NG/ML (<3.6)
[2023-10-30 19:42] LABS: CPK CREATINE PHOSPHOKINASE 49 U/L (34-145); MB/CK RELATIVE INDEX 2.04 (< OR =4)
[2023-10-30 20:44] VITALS: BP 138/84; TEMP 98.8; O2SAT 98
== END 2023-10-30 20:47 | disposition home or self-care (01) ==
LOC: M ED 17:16
DX: R07.9 Chest pain, unspecified (principal); I25.2 Old myocardial infarction; E11.9 Type 2 diabetes mellitus without complications; I10 Essential (primary) hypertension; K21.9 Gastro-esophageal reflux disease without esophagitis; Z87.891 Personal history of nicotine dependence; Z88.6 Allergy status to analgesic agent; Z79.52 Long term (current) use of systemic steroids; Z79.02 Long term (current) use of antithrombotics/antiplatelets; Z79.811 Long term (current) use of aromatase inhibitors; Z79.4 Long term (current) use of insulin; Z79.899 Other long term (current) drug therapy

== ENCOUNTER → 2023-11-08 | Outpatient (REF) | payer BC ==
[~2023-11-08] MED LIST changes: +CARV3.12
[2023-11-08 13:16] LABS: BLOOD UREA NITROGEN 16 MG/DL (9-23); CALCIUM LEVEL 9.6 MG/DL (8.3-10.6); CARBON DIOXIDE LEVEL 31 MMOL/L (20-31); CHLORIDE LEVEL 105 MMOL/L (98-107); CREATININE FOR GFR 0.67 MG/DL (0.55-1.30); GLOMERULAR FILTRATION RATE > 60.0 (>45); GLUCOSE, FASTING 84 MG/DL (74-106); POTASSIUM SERUM 4.4 MMOL/L (3.5-5.1); SODIUM LEVEL 140 MMOL/L (136-145)
== END ==
LOC: M LAB REF 11:15
PROVIDERS: ATTEND Internal Medicine Cardiovascular Disease
DX: I10 Essential (primary) hypertension (principal)

== ENCOUNTER → 2023-12-05 | Outpatient (CLI) | payer BC ==
[2023-12-05 06:48] LABS: HEMATOCRIT 42.6 % (36.0-47.0); HEMOGLOBIN 14.4 g/dl (12.0-15.5); MEAN CORPUSCULAR HEMOGLOBIN 32.8 pg (27.0-33.0); MEAN CORPUSCULAR HGB CONC 33.8 g/dl (32.0-36.5); PLATELET COUNT, AUTOMATED 236 10^3/uL (150-450); RED BLOOD COUNT 4.39 10^6/uL (4.00-5.40); WHITE BLOOD COUNT 5.6 10^3/uL (4.0-10.0)
[2023-12-05 07:05] LABS: HEMOGLOBIN A1c 5.8 % (4.0-6.0)
[2023-12-05 07:19] LABS: ALKALINE PHOSPHATASE 93 U/L (46-116); ALT/SGPT 104 U/L (7.0-40); AST/SGOT 45 U/L (<34); BILIRUBIN,TOTAL 0.5 MG/DL (0.3-1.2); BLOOD UREA NITROGEN 17 MG/DL (9-23); CALCIUM LEVEL 9.3 MG/DL (8.3-10.6); CARBON DIOXIDE LEVEL 28 MMOL/L (20-31); CHLORIDE LEVEL 108 MMOL/L (98-107); CHOLESTEROL LEVEL 232 MG/DL (<200); CHOLESTEROL RISK RATIO 5.91 (<5); CREATININE FOR GFR 0.72 MG/DL (0.55-1.30); GLOMERULAR FILTRATION RATE > 60.0 (>45); GLUCOSE, FASTING 110 MG/DL (74-106); HDL CHOLESTEROL 39.2 MG/DL (>40); NON-HDL-C 192.8 MG/DL; POTASSIUM SERUM 4.2 MMOL/L (3.5-5.1); SODIUM LEVEL 138 MMOL/L (136-145); TOTAL 25(OH) VITAMIN D 58.1 NG/ML (20.0-100.0); TOTAL PROTEIN 6.8 G/DL (5.7-8.2); TRIGLYCERIDES LEVEL 124 MG/DL (<150)
[2023-12-05 07:20] LABS: THYROID STIMULATING HORMONE 2.203 uIU/ML (0.55-4.78)
== END ==
LOC: M LAB 06:23
PROVIDERS: ATTEND Nurse Practitioner Adult Health
DX: Z00.00 Encounter for general adult medical examination without abnormal findings (principal); R73.09 Other abnormal glucose; E04.1 Nontoxic single thyroid nodule; E55.9 Vitamin D deficiency, unspecified

== ENCOUNTER → 2024-12-04 | Outpatient (CLI) | payer OTHER ==
[2024-12-04 10:30] LABS: HEMOGLOBIN A1c 5.7 % (4.0-6.0)
[2024-12-04 10:35] LABS: ALBUMIN 4.1 G/DL (3.2-5.2); ALKALINE PHOSPHATASE 91 U/L (35-104); ALT/SGPT 82 U/L (7.0-40); AST/SGOT 33 U/L (<34); BILIRUBIN,TOTAL 0.5 MG/DL (0.3-1.2); BLOOD UREA NITROGEN 13 MG/DL (9-23); CALCIUM LEVEL 9.4 MG/DL (8.3-10.6); CARBON DIOXIDE LEVEL 27 MMOL/L (20-31); CHLORIDE LEVEL 107 MMOL/L (98-107); CHOLESTEROL LEVEL 231 MG/DL (<200); CHOLESTEROL RISK RATIO 4.82 (<5); CREATININE FOR GFR 0.72 MG/DL (0.55-1.30); GLOMERULAR FILTRATION RATE > 60.0 (>45); GLUCOSE, FASTING 114 MG/DL (74-106); HDL CHOLESTEROL 47.9 MG/DL (>40); LDL CHOLESTEROL 153.3 MG/DL (<100); NON-HDL-C 183.1 MG/DL; POTASSIUM SERUM 4.5 MMOL/L (3.5-5.1); SODIUM LEVEL 142 MMOL/L (136-145); THYROID STIMULATING HORMONE 1.709 uIU/ML (0.55-4.78); TOTAL PROTEIN 7.1 G/DL (5.7-8.2); TRIGLYCERIDES LEVEL 149 MG/DL (<150)
== END ==
LOC: M PLALAB 07:05
PROVIDERS: ATTEND Nurse Practitioner Adult Health
DX: I10 Essential (primary) hypertension (principal); R73.09 Other abnormal glucose; E78.2 Mixed hyperlipidemia; E55.9 Vitamin D deficiency, unspecified

== ENCOUNTER → 2025-04-24 | Outpatient (CLI) | payer OTHER | LOC: M PLAIMG 09:26 | PROVIDERS: ATTEND Nurse Practitioner Adult Health | DX: J45.20 Mild intermittent asthma, uncomplicated (principal) ==

== ENCOUNTER → 2025-06-18 | Outpatient (CLI) | payer OTHER | LOC: M CARPUL 13:33 | PROVIDERS: ATTEND Physician Assistant | DX: R06.02 Shortness of breath (principal); Z87.891 Personal history of nicotine dependence ==

== ENCOUNTER → 2025-06-30 | Outpatient (CLI) | payer OTHER ==
[~2025-06-30] MED LIST changes: +METHACHOLINE KIT (6 VIAL.NEB PREMIX) INH ONE
== END ==
LOC: M CARPUL 12:23
PROVIDERS: ATTEND Physician Assistant
DX: R06.02 Shortness of breath (principal)
CPT/HCPCS: 94070; 95070; J7674